=== PATIENT | female | born 2000 | race Caucasian/White ===

== ENCOUNTER 2024-01-13 10:04 | Outpatient (CLI) | payer OTHER, SELFPAY | END 2024-01-13 10:05 | disposition home or self-care (01) | LOC: NFLDREF 01-28 07:03 | PROVIDERS: Visit Provider Nurse Practitioner Family | DX: R35.89 Other polyuria (principal); B37.9 Candidiasis, unspecified; B37.31 Acute candidiasis of vulva and vagina | CPT/HCPCS: 87086 ==

== ENCOUNTER 2024-07-07 12:45 | Outpatient (CLI) | payer OTHER, SELFPAY ==
--- OUTSIDE RECORDS SUMMARY | 2024-07-08 08:09 | XMS_ITS ---
Author Organization [facility] Address [address] [place] [address] Care Team Providers Care Clerk Funeral Detail Name Role Phone None, No PCP Primary Care Provider Scarlett Xavier Unavailable [phone] Allergies No Known Allergies REASON FOR VISIT Follow up to IC. Would like to discuss trying a different OCP due to getting more migraines with current rX. LMP: 05/19/24, DD, MAIL INSERTER Medications Medication SIG (Take, Route, Frequency, Duration) Notes Start Date End Date Status Amitriptyline HCl 25 MG Week 1: take 10m g (your other prescription); Week 2: take 25mg. Week 3: take 50mg. Week 4: take 75mg Orally Once a day for 90 days 02/19/2024 Not-Taking Amitriptyline HCl 75 MG 1 tablet at bedt mariela Orally Once a day for 90 days 02/19/2024 Not-Taking Desogestrel-Ethinyl Estradiol 0.15-30 MG-MCG 1 tablet Orally Once a day for 90 days No placebo pills. Please dispense active pills. Patient is to take medication continuously. 02/19/2024 Active Phenazopyridine HCl 200 MG 1 tablet afte r meals Orally Three times a day for 2 day(s) 02/08/2024 Not-Taking Problems Problem Type SNOMED Code ICD Code Onset Dates Problem Status W/U Status Risk Notes Problem 18006577 Ovulation pain (N94.0) Active confirmed Problem 617565299 Counseling for control, oral contraceptives (Z30.09) Active confirmed Vital Signs Blood pressure systolic 122 mm Hg 06/17/20 24 Blood pressure diastolic 64 mm Hg 024 Height 65 in 06/17/2024 Weight 210.8 lbs 06/17/2024 BMI 35.08 kg/m2 06/17/2024 Encounters Encounter Location Date Provider Diagnosis [facility] [address] [place] [address] 06/17/2024 Scarlett Bates Ovulation pain N94.0 ; Counseling for control, oral contraceptives Z30.09 and Pre-conception counseling Z31.69 Assessments Encounter Date Diagnosis (ICD Code) Assessment Notes Treat ment Notes Treatment Clinical Notes 06/17/2024 Ovulation pain (ICD-10 - N94.0) Patient reports relief of pelvic pain and urinary symptoms. She self-discontinued amitriptyline. We discussed it unlikely she has interstitial cystitis since combined oral contraceptives do not treat interstitial cystitis. We discussed her pain is ovulation based on the timing of her symptoms. It is possible she has endometriosis (now suppressed by COCs which was exacerbating her ovulation pain). Plan is to continue Desogestrel-Ethinyl Estradiol. Recommend patient transition to continuous NAPOLEON use to decrease migraines associated with withdrawal week (sugar pill week). She expressed concern for ovulation pain when she decides to become . She did not previously use therapeutic dosing of ibuprofen to manage her pain. We discussed ibuprofen would be first line recommendation to help reduce ovulation pain. We also discussed that once she becomes , she can no longer take ibuprofen. Patient will call to schedule pelvic ultrasound if she has an acute flare in symptoms. Recommend she follow-up in 6 weeks. If no improvement will transition patient to NAPOLEON with lower estradiol dosage. She verbalized understanding and is in agreement with this plan. , Learning About Chandan (Pain During Ovulation) material was published 06/17/2024 Counseling for control, oral contraceptives (ICD-10 - Z30.09) See plan under Ovulation pain 06/17/2024 Pre-conception counseling (ICD-10 - Z31.69) Patient expressed she would like to achieve next year. She requested preconception education today. We discussed the information below. Preconception Education -Diet: We discussed importance of a balanced diet, to avoid alcohol, drugs & smoking. To minimize caffeine intake. Avoid undercooked or raw meats especially once . -Medications: vitamin with folic acid and iron recommended daily. Recommended to reduce or discontinue use of NSAID's with tylenol being the preferred analgesic prior to conception and during -Activity: We discussed the importance of regular exercise and weight control prior to . -Ovulation: We discussed her menses and likely timing of ovulation and when to time intercourse to improve her chances of conceiving. We also discussed use of ovulation kits as needed to help distinguish the ideal times for intercourse. , Learning About Future When You Are Overweight material was published, Learning About Planning for Future material was published 06/17/2024 Other Time spent on patient care including - review of previous records - preparation for visit - ordering medications, labs or imaging - documenting visit - discussion of care with another health client care manager if indicated - direct face to face time with patient including obtaining relevant history, physical exam and discussion of plan of care Total time was 45 minutes spent including some or all of above listed required for care of patient talking about diagnosis, treatment and plan of care with the patient as listed in the treatment portion of the note Plan Of Treatment Medication Medication Name Sig Start Date Stop Date Notes Desogestrel-Ethinyl Estradio l 0.15-30 MG-MCG 1 tablet Orally Once a day for 90 days 02/19/2024 Treatment Notes Assessment Notes Ovulation pain Patient reports relief of pelvic pain and urinary symptoms. She self-discontinued amitriptyline. We discussed it unlikely she has interstitial cystitis since combined oral contraceptives do not treat interstitial cystitis. We discussed her pain is ovulation based on the timing of her symptoms. It is possible she has endometriosis (now suppressed by COCs which was exacerbating her ovulation pain). Plan is to continue Desogestrel-Ethinyl Estradiol. Recommend patient transition to continuous NAPOLEON use to decrease migraines associated with withdrawal week (sugar pill week). She expressed concern for ovulation pain when she decides to become . She did not previously use therapeutic dosing of ibuprofen to manage her pain. We discussed ibuprofen would be first line recommendation to help reduce ovulation pain. We also discussed that once she becomes , she can no longer take ibuprofen. Patient will call to schedule pelvic ultrasound if she has an acute flare in symptoms. Recommend she follow-up in 6 weeks. If no improvement will transition patient to NAPOLEON with lower estradiol dosage. She verbalized understanding and is in agreement with this plan. , Learning About [place] (Pain During Ovulation) material was published Counseling for control , oral contraceptives See plan under Ovulation pain Pre-conception counseling Patient expressed she would like to achieve next year. She requested preconception education today. We discussed the information below. Preconception Education -Diet: We discussed importance of a balanced diet, to avoid alcohol, drugs & smoking. To minimize caffeine intake. Avoid undercooked or raw meats especially once . -Medications: vitamin with folic acid and iron recommended daily. Recommended to reduce or discontinue use of NSAID's with tylenol being the preferred analgesic prior to conception and during -Activity: We discussed the importance of regular exercise and weight control prior to . -Ovulation: We discussed her menses and likely timing of ovulation and when to time intercourse to improve her chances of conceiving. We also discussed use of ovulation kits as needed to help distinguish the ideal times for intercourse. , Learning About Future When You Are Overweight material was published, Learning About Planning for Future material was published Other Time spent on patient care including - review of previous records - preparation for visit - ordering medications, labs or imaging - documenting visit - discussion of care with another health client care manager if indicated - direct face to face time with patient including obtaining relevant history, physical exam and discussion of plan of care Total time was 45 minutes spent including some or all of above listed required for care of patient talking about diagnosis, treatment and plan of care with the patient as listed in the treatment portion of the note Next Appt Details Follow Up: 6 Weeks, Reason: NAPOLEON F/U Provider Name:Scarlett Bates, Heavenly 09/28/2023 03:00:00 PM, [address] [place], [address], Progress Notes * Rand DAVALOSDOB: [birth year] (23 yo F)Acc No.[id number]:06/17/2024 Patient:?Rand DAVALOS Provider:?Scarlett Bates DNP :2000???Age:23 Y???Sex:Female D ate:06/17/2024 Address:[address] [place], [place] [id number] Pcp:No PCP None Subjective: * Chief Complaints: * ???1. Follow up to IC. Would like to discuss trying a different OCP due to getting more migraines with current rX. LMP: 05/19/24. 2. RICK HONG. * HPI: ???*General:? Rand is a 23 year old female who presents today for follow up on interstitial cystitis.? Initial consult was on 02/19/2024. See note from initial consult for detailed HPI. Most recent follow-up was on 03/19/2024. At that appointment pelvic pain and urinary symptoms had resolved after starting?amitryptyline and?Desogestrel-Ethinyl Estradiol. Purpose of today's visit is to follow-up on pelvic pain and urinary symptoms. Also to discuss if it is necessary for patient to continue both?Amitryptyline, and Combine Oral Contraceptive.? Today: Patient reports she is no longer having any pelvic pain or urinary symptoms. She is very happy with the improvement in her symptoms. She self-discontinued amitryptiline. Reports no change in pelvic pain or urinary symptoms with discontinuation of amitriptyline. Patient reports she is now having migraine headaches. She attribute this to the sugar pills week on her control pills. She denies other side effects from?Desogestrel-Ethinyl Estradiol. * ROS:?All Other Systems:?Review of Systems (ROS)?All others negative except those mentioned in HPI.? * Medical History:?Depression/ anxiety. * Termite Treater History:?Date of Last Period:?05/19/24 OCP,03/17/2405.? Control: ?None.?Sexual Activity?male partner, Not currently sexually active.?Sexually Tranmitted Disease (STD)?None.?Denies H/O Abnormal Pap Smear.? * OB History:?GPAL:?G0.? * Surgical History:?hernia rep air , wisdom teeth extraction . * Hospitalization/Major Diagno stic Procedure:?Hernia Surgery . * Family History:?Mother: diag nosed with Breast Cancer.?Maternal Grand Mother: diagnosed with Breast Cancer.? * Social History:?Drugs/Alcohol:?Drugs?Have you used drugs other than those for medical reasons in the past 12 months??No ?Delta 8?No ?Caffeine?Intake:?none ?Do you smoke marijuana?: Denies. ?Do you drink alcohol?: Yes, Rarely. ???Miscellaneous:?Exercise: no. * Medications:?Taking Desogest rel-Ethinyl Estradiol 0.15-30 MG-MCG Tablet 1 tablet Orally Once a day , Not-Taking Phenazopyridine HCl 200 MG Tablet 1 tablet after meals Orally Three times a day , Not-Taking Amitriptyline HCl 25 MG Tablet Week 1: take 10mg (your other prescription); Week 2: take 25mg. Week 3: take 50mg. Week 4: take 75mg Orally Once a day , Not-Taking Amitriptyline HCl 75 MG Tablet 1 tablet at bedtime Orally Once a day , Medication List reviewed and reconciled with the patient * Allergies:?N.K.D.A. Objective: * Vitals:?Ht: 65 in, Wt:210.8l bs, BP:122/64mm Hg, BMI:35.08Index. * Examination: ???*General Examination: ?GENERAL APPEARANCE:?in no acute distress, alert, well hydrated, in no distress.?PSYCH:?alert, oriented, judgement and insight good, mood/affect full range, speech clear.? Assessment: * Assessment: 1.?Ovulation pain - N94.0 (P rimary)???2.?Counseling for control, oral contraceptives - Z30.09???3.?Pre-conception counseling - Z31.69??? Plan: * Treatment: 2.?Counseling for cont rol, oral contraceptives? Start Desogestrel-Ethinyl Estradiol Tablet, 0.15-30 MG-MCG, 1 tablet, Orally, Once a day No placebo pills. Please dispense active pills. Patient is to take medication continuously., 90 days, 90 Tablet, Refills 3.?? Notes: See plan underOvulation pain?? 3.?Pre-conception counseling ? Notes: Patient expressed she would like to achieve next year. She requested preconception education today. We discussed the information below. Preconception Education -Diet: We discussed importance of a balanced diet, to avoid alcohol, drugs & smoking. To minimize caffeine intake. Avoid undercooked or raw meats especially once . -Medications: vitamin with folic acid and iron recommended daily. Recommended to reduce or discontinue use of NSAID's with tylenol being the preferred analgesic prior to conception and during -Activity: We discussed the importance of regular exercise and weight control prior to . -Ovulation: We discussed her menses and likely timing of ovulation and when to time intercourse to improve her chances of conceiving. We also discussed use of ovulation kits as needed to help distinguish the ideal times for intercourse. , Learning About Future When You Are Overweight material was published, Learning About Planning for Future material was published?? 4.?Others? Notes: Time spent on patient care including - review of previous records - preparation for visit - ordering medications, labs or imaging - documenting visit - discussion of care with another health client care manager if indicated - direct face to face time with patient including obtaining relevant history, physical exam and discussion of plan of care Total time was 45 minutes spent including some or all of above listed required for care of patient talking about diagnosis, treatment and plan of care with the patient as listed in the treatment portion of the note ?? * Follow Up:?6 Weeks (Reason: NAPOLEON F/U) * Billing Information: * Visit Code:? 63775 Office Visit, Est Pt., Level 5. * Procedure Codes:? * Sign off status: Completed true * Provider:?Scarlett Bates DNP Date:? 024 Generated for Georges salamanca/Fátima/Arnel on:?07/08/2024 12:56 AM CDT History and Physical Notes * Examination Category Sub-Category Detail Notes *General Examination GENERAL APPEARANCE: in no a cute distress, alert, well hydrated, in no distress PSYCH: alert, oriented, suzanna gement and insight good, mood/affect full range, speech clear
--- OUTSIDE RECORDS SUMMARY | 2024-07-08 08:09 | XMS_ITS | Patient Health Record ---
Author Organization [facility] Address [address] [place] [address] Care Team Providers Care School Traffic Supervisor Name Role Phone None, No PCP Primary Care Provider Joe Bates Scarlett Unavailable [phone] Nathalie Zhao Unavailable [phone] Allergies No Known Allergies Results Component Value Reference Range Notes THINPREP TIS AND HPV mRNA E6 /E7 (30 yrs and over) Reviewed date:02/14/2024 08:30:21 AM Interpretation:Normal Performing Lab:[place], [facility] Gibson Neumann Notes/Report: SPLIT 02/08/2024 FROM [id number] CLINICAL INFORMATION: None g iven LMP: [id number] PREV. PAP: 2021 PREV. BX: NONE GIVEN SOURCE: [employer] STATEMENT OF ADEQUACY: Satisfactory for evaluation. Endocervical/transformatio n zone component present. INTERPRETATION/RESULT: Cytology Results: Negative for intraepithelial lesion or malignancy. COMMENT: This Pap test has been evaluated with computer assisted technology. DYE HOUSE HAND: COLIN RYAN(ASCP) CT Screening location: [place] [address] COMMENT EXPLANATORY NOTE: The Pap is a screening test for cervical cancer. It is not a diagnostic test and is subject to false negative and false positive results. It is most reliable when a satisfactory sample, regularly obtained, is submitted with relevant clinical findings and history, and when the Pap result is evaluated along with historic and current clinical information. HPV mRNA E6/E7 Not Detected Not Detected Methodology: Philosophy And Religion Instructor-Mediated Amplification This assay detects E6/E7 viral messenger RNA (mRNA) from 14 high-risk HPV types (16,18,31,33,35,39,45,51,5 2,56,58,59,66,68). Cervical sources are required for HPV testing. If a vaginal source from a patient who has had a total hysterectomy with removal of cervix was submitted, please contact the testing laboratory for alternative testing options. For additional information, please refer to http://education.Updox/faq/YUT875x6 (This link if provided for information/ educational purposes only.) CULTURE, URINE, ROUTINE Reviewed date:02/11/2024 10:19:14 AM Interpretation:Negative Performing Lab:[facility] [address] [facility], [facility] HospitalJluxBB[address] Gibson Neumann Notes/Report: MULTIPLE TESTING PRIORITIES; ROUTINE TESTING TO FOLLOW. CULTURE, URINE, ROUTINE SEE NOTE Micro Number: [id number] Test Status: Final Specimen Source: Urine, clean catch Specimen Quality: Adequate Result: Mixed genital graciela isolated. These superficial bacteria are not indicative of a urinary tract CULTURE, URINE, ROUTINE infection. No further organism identification is warranted on this specimen. If clinically indicated, recollect clean-catch, mid-stream urine and transfer immediately to Urine Culture Transport Tube. TSH (IH) Reviewed date:02/11/2024 11:10:50 AM Interpretation:Normal Performing Lab: Notes/Report: [place] [id number] ([id number])[facility] HEMOGLOBIN A1c Reviewed date:02/11/2024 10:19:14 AM Interpretation:Normal Performing Lab:[facility] [employer]New[facility], [facility] HospitalDqmuCH[address] Gibson Neumann Notes/Report: HEMOGLOBIN A1c 5.1 <5.7 % of total Hgb For the purpose of screening for the presence of diabetes: <5.7% Consistent with the absence of diabetes 5.7-6.4% Consistent with increased risk for diabetes (prediabetes) > or =6.5% Consistent with diabetes This assay result is consistent with a decreased risk of diabetes. Currently, no consensus exists regarding use of hemoglobin A1c for diagnosis of diabetes in children. According to [place] Diabetes Association (ADA) guidelines, hemoglobin A1c <7.0% represents optimal control in non- diabetic patients. Different metrics may apply to specific patient populations. Standards of Medical Care in Diabetes(ADA). This test was performed on the Summer karla c503 platform. Effective 11/28/23, a change in test platforms from the [employer] Manager [employer] to the Summer karla c503 may have shifted HbA1c results compared to historical results. Based on laboratory validation testing conducted at [employer], the Summer platform relative to the [place] platform had an average increase in HbA1c value of < or = 0.3%. This difference is within accepted variability established by the National Glycohemoglobin Standardization Program. Note that not all individuals will have had a shift in their results and direct comparisons between historical and current results for testing conducted on different platforms is not recommended. CBC (INCLUDES DIFF/PLT) Reviewed date:02/11/2024 10:19:14 AM Interpretation: Performing Lab:[facility] [employer], YuMingleMssnEE[address] Gibson Neumann Notes/Report: WHITE BLOOD CELL COUNT 7.9 3.8-10.8 Thousand/ uL RED BLOOD CELL COUNT 5.27 3.80-5.10 Million/uL HEMOGLOBIN 13.5 11.7-15.5 g/dL HEMATOCRIT 43.4 35.0-45.0 % MCV 82.4 80.0-100.0 fL MCH 25.6 27.0-33.0 pg MCHC 31.1 32.0-36.0 g/dL RDW 12.6 11.0-15.0 % PLATELET COUNT 264 140-400 Thousand/uL MPV 9.6 7.5-12.5 fL ABSOLUTE NEUTROPHILS 5167 9238-2552 cells/uL ABSOLUTE LYMPHOCYTES 2038 850-3900 cells/uL ABSOLUTE MONOCYTES 600 200-950 cells/uL ABSOLUTE EOSINOPHILS 63 15-500 cells/uL ABSOLUTE BASOPHILS 32 0-200 cells/uL NEUTROPHILS 65.4 LYMPHOCYTES 25.8 MONOCYTES 7.6 EOSINOPHILS 0.8 BASOPHILS 0.4 COMPREHENSIVE METABOLIC PANE L (CMP) Reviewed date:02/11/2024 10:19:14 AM Interpretation:Normal Performing Lab:[facility] Jgzt4845 [employer] [place] [facility], [facility] HospitalKrffKL[address] Gibson Neumann Notes/Report: GLUCOSE 87 65-99 mg/dL Fasting reference interval UREA NITROGEN (BUN) 9 7-25 mg/dL CREATININE 0.78 0.50-0.96 mg/dL EGFR 108 > OR = 60 mL/min/1.73m2 BUN/CREATININE RATIO SEE NOTE: 6-22 (calc) Not Reported: BUN and Creatinine are within reference range. SODIUM 138 135-146 mmol/L POTASSIUM 4.1 3.5-5.3 mmol/L CHLORIDE 104 98-110 mmol/L CARBON DIOXIDE 27 20-32 mmol/L CALCIUM 9.2 8.6-10.2 mg/dL PROTEIN, TOTAL 7.1 6.1-8.1 g/dL ALBUMIN 4.5 3.6-5.1 g/dL GLOBULIN 2.6 1.9-3.7 g/dL (calc) ALBUMIN/GLOBULIN RATIO 1.7 1.0-2.5 (calc) BILIRUBIN, TOTAL 0.5 0.2-1.2 mg/dL ALKALINE PHOSPHATASE 55 31-125 U/L AST 20 10-30 U/L ALT 21 6-29 U/L Urinalysis, Routine () Reviewed date:02/08/2024 11:26:21 AM Interpretation: Performing Lab: Notes/Report: Urine Color yellow Yellow - Gabi Appearance clear Clear - Glucose neg Bilirubin neg Ketone neg Specific Shevlin 1.020 Blood 80 pH 6.0 Protein neg Urobilinogen 1 Nitrite neg Leukocytes neg Reason For Referral No Information Medications Medication SIG (Take, Route, Frequency, Duration) [...] a day for 2 day(s) 02/08/2024 Not-Taking Social History AUDIT-C (Standard) Question Answer Notes Did you have a drink contain ing alcohol in the past year? Yes How often did you have six o r more drinks on one occasion in the past year? Less than monthly (1 point) How many drinks did you have on a typical day when you were drinking in the past year? 1 or 2 drinks (0 point) How often did you have a dri nk containing alcohol in the past year? Monthly or less (1 point) Points 2 Interpretation Negative Problems Problem Type SNOMED Code ICD Code Onset Dates Problem Status W/U Status Risk Notes Problem 998790185 Encounter for initial prescription of contraceptive pills (Z30.011) Active confirmed Problem 115719978 Interstitial cystitis (N30.10) Active confirmed Problem 74464565 Ovulation pain (N94.0) Active confirmed Problem 689956569 Counseling for control, oral contraceptives (Z30.09) Active confirmed Vital Signs Blood pressure diastolic 64 mm Hg 06/17/2024 Height 65 in 06/17/2024 Blood pressure systolic 122 mm Hg 06/17/2024 Weight 210.8 lbs 06/17/2024 BMI 35.08 kg/m2 06/17/2024 Encounters Encounter Location Date Provider Diagnosis [address] [address] 02/08/2024 Nathalie Zhao Encounter for screen ing for malignant neoplasm of cervix Z12.4 ; Women's annual routine gynecological examination Z01.419 ; Encounter for screening for diabetes mellitus Z13.1 and Urinary frequency R35.[address] [address] 02/08/2024 Nathalie Zhao Encounter for annual routine gynecological examination Z01.419 ; Screening for metabolic disorder Z13.228 ; Diabetes mellitus screening Z13.1 ; Screening for endocrine disorder Z13.29 and Urinary frequency R35.[address] [address] 02/19/2024 Scarlett Bates Bladder pain syndrom e N30.10 and Encounter for initial prescription of contraceptive pills Z30.[address] [address] 03/19/2024 Scarlett Bates Interstitial cystiti s N30.[address] [address] 06/17/2024 Scarlett Bates Ovulation pain N94.0 ; Counseling for control, oral contraceptives Z30.09 and Pre-conception counseling Z31.69 [facility] [address] [place] [address] [place] [id number] 02/08/2024 Nathalie Zhao [facility] [address] [place] [address] [place] [id number] 02/08/2024 Nathalie Zhao [facility] [address] [place] [address] 02/19/2024 Scarlett [facility] [address] [place] [address] 02/08/2024 Nathalie Zhao [facility] [address] [place] [address] 02/19/2024 Scarlett Bates [facility] [address] [place] [address] 02/19/2024 Scarlett [facility] [address] [place] [address] 04/15/2024 Scarlett [facility] Assessments Encounter Date Diagnosis (ICD Code) Assessment Notes Treatment Notes Treatment Clinical Notes 02/08/2024 Encounter for screening for malignant neoplasm of cervix (ICD-10 - Z12.4) 02/08/2024 Women's annual routine gynecological examination (ICD-10 - Z01.419) 02/08/2024 Encounter for annual routine gynecological examination (ICD-10 - Z01.419) 02/19/2024 Encounter for initial prescription of contraceptive pills (ICD-10 - Z30.011) Patient denies contraindications to estrogen (migraine with aura, breast disease/cancer, liver disease/cancer, history of VTE, AUB, ). Reviewed proper use for oral contraceptives. Purpose of oral contraceptive is to suppress ovulation in hopes to reduce patient's pain. See remainder of plan under Bladder pain syndrome 02/19/2024 Bladder pain syndrome (ICD-10 - N30.10) Discussed her symptoms are consistent with bladder pain syndrome, also known as interstitial cystitis. She recently has had a negative urine culture. Additional work-up recommended today is pelvic ultrasound. Recommend patient call and schedule ultrasound next time she is having a flare. I would like to determine if ovarian cysts are contributing to her pain. Provided patient with handout on AUA algorithm for interstitial cystitis. I do not recommend cystoscopy at this time. Will consider cystoscopy if patient does not improve at next follow-up. Today recommend that patient continue interstitial cystitis diet. Patient has been using the [facility] diet guidebook. Can consider referral to manager corporate in future if needed. Recommend pelvic floor physical therapy. In addition, recommend medication management with oral amitriptyline (see discussion on amitryptiline below) and combined oral contraceptive for suppression of ovulation. Patient recently had pelvic exam at annual exam. No pain or pelvic floor dysfunction noted on exam. Due to time spent in consultation exam not performed. Deferring examination of pelvic floor muscles to pelvic floor physical therapist. Patient is to complete bladder diary, 2 days should be when she is not having a flare, and at least 1 days during a flare if flare occurs before next appointment. Encouraged patient to pay attention to bowel habits and flares. Can consider gastroenterology referral in future. Patient will follow-up in 4 weeks. If flare occurs during that time, refer to IChelp.org for guidance on at home comfort measures AMITRIPTYLINE: Today we discussed that amitriptyline is recommended as a first-line pharmacologic therapy for management of interstitial cystitis/bladder pain syndrome (IC/BPS). This medication works by increasing the synaptic concentration of serotonin and/or norepinephrine in the central nervous system by inhibiting their reuptake by the presynaptic neuronal membrane pump. Onset of action: initial effects may be observed in 1 to 2 weeks with continued improvement through 4 to 6 weeks. Amitriptyline is a tricyclic antidepressant and can have the added benefit of relieve depressive symptoms often associated with chronic pain. Amitriptyline appears to be most effective for IC/BPS at higher doses. In one trial patients on a 50mg daily dose or higher had greater than 30 percent decrease in symptoms (when compared to placebo). Another randomized controlled trial reported efficacy of oral amitriptyline (25 mg daily titrated over several weeks to 100 mg daily if tolerated) to be superior to placebo (63% of treatment group clinically significantly improved compared to 4% of placebo group) at four months. Two observational studies reported similar findings of 50% to 64% of patients experiencing clinically significant improvement using a similar dosing regimen at up to 19 months of follow-up. AEs were extremely common (up to 79% of patients) and, although not life-threatening, had substantial potential to compromise quality of life (e.g., sedation, drowsiness, nausea). We reviewed common side effects and adverse reactions: Side effects: drowsiness, dry mouth, dizziness, constipation, blurred vision, palpitations, tachycardia, impaired coordination, appetite increase, nausea, vomiting, diaphoresis, weakness, disorientation, confusion, restlessness, insomnia, anxiety, agitation, urinary retention, urinary frequency, rash, urticaria, pruritus, weight gain, libido changes, impotence, gynecomastia, galactorrhea, tremor, hypoglycemia, hyperglycemia, paresthesia, and photosensitivity. Adverse reactions: hypotension, orthostatic, hypertension, syncope, ventricular arrhythmia, QT prolongation, torsade de pointes, AV block, AR, stroke, seizures, extrapyramidal symptoms, ataxia, tardive dyskinesia, paralytic ileus, glaucoma, increase in intraocular pressure, agranulocytosis, leukopenia, thrombocytopenia, hallucinations, psychosis exacerbation, hypomania, mario, depression exacerbation, suicidality, SIADH, hepatitis, angioedema, psychosis, anticholinergic, hyperthermia, heat stroke, and withdrawal symptoms if abruptly discontinued. This medication should not be taken concomitantly with monoamine oxidase inhibitors. It should not be taken with cisapride. Nor should it be used immediately after a myocardial infarction. Other medications that can interact with amitriptyline include selective serotonin inhibitors, cimetidine, and anticonvulsants. She denies use of MAOI (within past 14 days), use of cisapride, or history of myocardial infarction. Monitoring parameters: Has completed PHQ-9 within the past year. No cardiac history. ECG is not indicated. If patient becomes recommend discontinuation of medication. May use while . Plan to start at initial dose of 10mg daily at bedtime and then increase based on tolerance. After 1 week will increase dose to 25 mg. Then increase weekly at 25mg intervals until patient hits target dose of 75 to 100 mg/day. Follow-up in 4 weeks to review effectiveness and tolerance. 03/19/2024 Interstitial cystitis (ICD-10 - N30.10) Patient reports relief of pelvic pain and urinary symptoms. Plan is to continue amitryptiline and Desogestrel-Ethinyl Estradiol. Patient will call to schedule pelvic ultrasound if she has an acute flare in symptoms. Recommend she follow-up in 3 months 06/17/2024 Ovulation pain (ICD-10 - N94.0) Patient [...] About Planning for Future material was published 02/08/2024 Screening for metabolic disorder (ICD-10 - Z13.228) 02/08/2024 Encounter for screening for diabetes mellitus (ICD-10 - Z13.1) 02/08/2024 Urinary frequency (ICD-10 - R35.0) 1. UA/UC today 2. WIll have her come back to have a bladder consult with Scarlett Bates DNP. Symptoms seem consistent with IC. IC diet book provided. Recommended she do a bladder/food diary prior to her visit with Paulo. 3. Blood noted in her UA today so will treat with macrobid 02/08/2024 Diabetes mellitus screening (ICD-10 - Z13.1) 02/08/2024 Screening for endocrine disorder (ICD-10 - Z13.29) 02/08/2024 Urinary frequency (ICD-10 - R35.0) 02/08/2024 Other Reviewed recommendations for Vit D 5000IU, Ca+ and daily multi vitamin. Preventative lab panel collected Pap collected Encouraged to call with any issues or concerns as they come up. All questions answered. RTC in 1 year 02/19/2024 Other Time spent on patient care including - review of previous records - preparation for visit - ordering medications, labs or imaging - documenting visit - discussion of care with another health career discovery teacher if indicated - direct face to face time with patient including obtaining relevant history, physical exam and discussion of plan of care Total time was 45 minutes spent including some or all of above listed required for care of patient talking about diagnosis, treatment and plan of care with the patient as listed in the treatment portion of the note 03/19/2024 Other Time spent on patient care including - review of previous records - preparation for visit - ordering medications, labs or imaging - documenting visit - discussion of care with another health career discovery teacher if indicated - direct face to face time with patient including obtaining relevant history, physical exam and discussion of plan of care Total time was 32 minutes spent including some or all of above listed required for care of patient talking about diagnosis, treatment and plan of care with the patient as listed in the treatment portion of the note 06/17/2024 Other Time spent on patient care including - review of previous records - preparation for visit - ordering medications, labs or imaging - documenting visit - discussion of care with another health career discovery teacher if indicated - direct face to face time with patient including obtaining relevant history, physical exam and discussion of plan of care Total time was 45 minutes spent including some or all of above listed required for care of patient talking about diagnosis, treatment and plan of care with the patient as listed in the treatment portion of the note Plan Of Treatment Pending Test Test Name Order Date Pap with reflex HPV if ASCUS (under 30 y rs) 02/08/2024 Next Appt Details Provider Name:Scarlett Bates, 1 09/28/2023 03:00:00 PM, [address] [place], [address], Insurance Providers Payer Name Payer Address Payer Phone Subscriber Number Group Number Insured Name Patient Relationship to Insured Coverage Start Date Coverage End Date [facility] Commercial (Ins. Bill) [address] [address] [place], [place] [id number] [phone] Rand Joy Self - patient is the insured Medical (General) History Medical History History ICD Code depression/ anxiety Surgical History Surgery Date(Month/Year) hernia repair wisdom teeth extraction Hospitalization History Reason Date(Month/Year) Hernia Surgery
--- OUTSIDE RECORDS SUMMARY | 2024-07-08 08:09 | XMS_ITS ---
Author Organization [facility] Address [address] [place] [address] Care Team Providers Care Journeyman Lineman Name Role Phone None, No PCP Primary Care Provider Scarlett Xavier [phone] REASON FOR VISIT New Refill Request Encounters Encounter Location Date Provider Diagnosis [facility] [address] [place] [address] 04/15/2024 Scarlett Bates Plan Of Treatment Next Appt Details Provider Name:Scarlett Bates, 1 09/28/2023 03:00:00 PM, [address] [place], [address], Progress Notes * Rand DAVALOSDOB: [birth year] (23 yo F)Acc No.[id number]:04/15/2024 Patient:?Rand DAVALOS :2000???Age:23 Y???Sex:Female Address:[address] [place], [address] * true * Date:? Generated for Printi ng/Faxing/eTransmitting on:?07/08/2024 08:09 AM CDT
--- OUTSIDE RECORDS SUMMARY | 2024-07-08 08:10 | XMS_ITS | Encounter Summary ---
Author Organization [facility] Address [address] [place] [id number] Care Team Providers Care Development Analyst Name Role Phone Sindhu Granda NP Primary Care Provider Sindhu Mason NP Unavailable Unavailable Juana Jimenes PA-C Unavailable No Ref-Primary, Physician Primary Care Provider Reason for Visit * Reason Onset Date Comments MyChart Communication 06/07/2023 Encounter Details Date Type Department Care Team (Latest Contact Info) Description 06/07/2023 MyC Medical Advice [address] [address] Sindhu Granda NP MyChart Communication Social History Tobacco Use Types Packs/Day Years Used Date Smoking Tobacco: Never Smokeless Tobacco: Never Alcohol Use Standard Drinks/Week Comments Yes 0 (1 standard drink = 0.6 oz pur e alcohol) Social Connection and Isolation Panel [NHANES] A nswer Date Recorded In a typical week, how many times do you talk on the phone with family, friends, or neighbors? Twice a week 06/06/2023 How often do you get together with friends or re latives? Once a week 06/06/2023 How often do you attend anabaptist or scientologist serv ices? Never 06/06/2023 Do you belong to any clubs o r organizations such as anabaptist groups, unions, fraternal or athletic groups, or school groups? No 06/06/2023 Attends Club or Organization Meetings Not on vin e 06/06/2023 Are you , , di vorced, , never , or living with a partner? 06/06/2023 AUDIT-C Answer Date Recorded Q1: How often do you have a drink containing alc ohol? 2-4 times a month 06/06/2023 Q2: How many drinks containi ng alcohol do you have on a typical day when you are drinking? 1 or 2 06/06/2023 Q3: How often do you have si x or more drinks on one occasion? Never 06/06/2023 Overall Financial Resource Strain (CARDIA) Answe r Date Recorded How hard is it for you to pa y for the very basics like food, housing, medical care, and heating? Not hard at all 06/06/2023 PHQ-2 Answer Date Recorded PHQ-2 Score 1 06/06/2023 [facility] - Occupational Stress Questionnaire Answer Date Recorded Do you feel stress - tense, restless, nervous, or anxious, or unable to sleep at night because your mind is troubled all the time - these days? Only a little 06/06/2023 Exercise Vital Sign Answer Date Recorde d On average, how many days pe r week do you engage in moderate to strenuous exercise (like a brisk walk)? 1 day 06/06/2023 On average, how many minutes do you engage in exercise at this level? 30 min 06/06/2023 Hunger Vital Sign Answer Date Recorded Within the past 12 months, y ou worried that your food would run out before you got the money to buy more. Never true 06/06/20 23 Within the past 12 months, t he food you bought just didn't last and you didn't have money to get more. Never true 06/06/2023 PRAPARE - Transportation Answer Date Re corded In the past 12 months, has l ack of transportation kept you from medical appointments or from getting medications? No 05/25 In the past 12 months, has l ack of transportation kept you from meetings, work, or from getting things needed for daily living? No 06/06/2023 Housing Stability Vital Sign Answer Alexsander e Recorded In the last 12 months, was t here a time when you were not able to pay the mortgage or rent on time? No 06/06/2023 In the last 12 months, how many places have you lived? 1 06/06/2023 In the last 12 months, was t here a time when you did not have a steady place to sleep or slept in a detention (including now)? No 06/06/2023 Sex and Gender Information Value Date Recorded Sex Assigned at Not on file Gender Identity Not on file Sexual Orientation Not on file COVID-19 Exposure Response Date Recorded In the last 10 days, have yo u been in contact with someone who was confirmed or suspected to have Coronavirus/COVID-19? No / Unsure 06/06/2023 3:30 PM CDT documented as of this encounter Plan of Treatment Not on file documented as of this encounter Visit Diagnoses Not on filedocumented in this encounter Care Teams Development Analyst Relationship Specialty Start Date End Date Sindhu Granda NP PCP - General Family Medicine 06/06/23 01/10/24 No Ref-Primary, Physician PCP - General 07/08/24 Sindhu Granda NP Assigned PCP 05/16/23 01/14/24 Juana Jimenes PA-C [id number] [place] [address] Assigned PCP 01/15/24 documented as of this encounter
--- OUTSIDE RECORDS SUMMARY | 2024-07-08 08:10 | XMS_ITS | Referral Summary ---
Author Organization [facility] Address [address] [place] [address] Care Team Providers Care Front End Web Designer Name Role Phone Juana Jimenes PA-C Unavailable No Ref-Primary, Physician Primary Care Provider Encounters Date Type Department Care Team Description 07/08/2024 Travel 07/08/2024 2:31 AM CDT - 07/08/2024 5:45 AM CDT [facility] Emergency Dept [address] [place] [address] Brian Perry MD Acute pyelonephritis Discharge Disposition: Home or Self Care from Last 3 Months Allergies No known active allergies Medications Medication Sig Dispensed Refills Start Date End Date Status sertraline (ZOLOFT) 25 MG tabletIndications: Anxiety Take 1 tablet (25 mg) by mouth daily 90 tablet 3 07/11/2023 Active Additional Information Patient not taking.Reported on 11/25/2023 tirzepatide (MOUNJARO) 2.5 MG/0.5ML penIndications:Cla ss 2 severe obesity due to excess calories with serious comorbidity and body mass index (BMI) of 36.0 to 36.9 in adult (H) Inject 2.5 mg Subcutaneous every 7 days 2 mL 07/11/2023 Active Additional Information Patient not taking.Reported on 11/25/2023 dicyclomine (BENTYL) 20 MG tabletIndications: Abdominal pain, generalized Take 1 tablet (20 mg) by mouth 4 times daily as needed (abdominal pain) 40 tablet 08/28/2023 Active Additional Information Patient not taking.Reported on 12/21/2023 sulfamethoxazole-t rimethoprim (BACTRIM DS) 800-160 MG tablet Take 1 tablet by mouth 2 times daily for 10 days. 20 tablet 07/08/2024 07/18/2024 Active Active Problems No known active problems Social History Tobacco Use Types Packs/Day Years Used Date Smoking Tobacco: Never Smokeless Tobacco: Never Tobacco Cessation:Counseling Given: Not Answered Alcohol Use Standard Drinks/Week Comments Yes 0 [...] week 06/06/2023 How often do you attend yazidi or anabaptist serv ices? Never 06/06/2023 Do you belong to any clubs o r organizations such as yazidi groups, unions, fraternal or athletic groups, or [...] more drinks on one occasion? Never 06/06/2023 PHQ-2 Answer Date Recorded PHQ-2 Score 0 12/21/2023 [facility] of Occupat ional Health - [...] exercise at this level? 30 min 06/06/2023 Adolescent Education Answer Date Record ed Getting School Help Needed Not on file 06/16 Food Insecurity Answer Date Recorded Within the past 12 months, d id you worry that your food would run out before you got money to buy more? No 07/11/2023 Within the past 12 months, d id the food you bought just not last and you didn? t have money to get more? No 07/11/2023 Housing Stability Answer Date Recorded Do you have housing? (Christian cardoso is defined as stable permanent housing and does not include staying ouside in a car, in a tent, in an abandoned building, in an overnight skilled nursing, or couch-surfing.) Yes 07/11/2023 Are you worried about losing your housing? No 07/11/2023 Financial Resource Strain Answer Date R ecorded Within the past 12 months, h ave you or your family members you live with been unable to get utilities (heat, electricity) when it was really needed? No 07/11/2023 Transportation Needs Answer Date Record ed Within the past 12 months, h as lack of transportation kept you from medical appointments, getting your medicines, non-medical meetings or appointments, work, or from getting things that you need? No 07/11/2023 Interpersonal Safety Answer Date Record ed Do you feel physically and e motionally safe where you currently live? Yes 07/11/2023 Within the past 12 months, h ave you been hit, slapped, kicked or otherwise physically hurt by someone? No 07/11/2023 Within the past 12 months, h ave you been humiliated or emotionally abused in other ways by your partner or ex-partner? No 07/11/2023 Sex and Gender Information Value Date Recorded Sex Assigned at Not on file Gender Identity Not on file Sexual Orientation Not on file Last Filed Vital Signs Vital Sign Reading Time Taken Comments Blood Pressure 137/84 07/08/2024 12:59 AM CDT Pulse 114 07/08/2024 12:59 AM CDT Temperature 36.8 ??C (98.3 ??F) 07/08/2024 12:59 AM C DT Respiratory Rate 20 07/08/2024 12:59 AM CDT Oxygen Saturation 100% 07/08/2024 12:59 AM CDT Inhaled Oxygen Concentration - - Weight 96.9 kg (213 lb 10 oz) 07/08/2024 12:59 A M CDT Height 165.1 cm (5' 5) 07/08/2024 12:59 AM CDT Body Mass Index 35.55 07/08/2024 12:59 AM CDT Plan of Treatment Not on file Procedures Procedure Name Priority Date/Time Associated Diagnosis Comments CT ABDOMEN PELVIS W/O CONTRAST STAT 07/08/2024 4:44 AM CDT CBC WITH PLATELETS & DIFFERENTIAL STAT 07/08/2024 2:53 AM CDT CBC WITH PLATELETS AND DIFFERENTIAL STAT 07/08/2024 2:53 AM CDT HCG QUALITATIVE STAT 07/08/2024 2:53 AM CDT COMPREHENSIVE METABOLIC PANEL STAT 07/08/2024 2:53 AM CDT ROUTINE UA WITH MICROSCOPIC REFLEX TO CULTURE STAT 07/08/2024 1:35 AM CDT ABSTRACT HIV Routine 02/16/2022 4:05 PM CDT PAP SMEAR - HIM PATIENT REPORTED Routine 08/02/2021 from Last 3 Months or Most Recently Relevant to Health Maintenance Results * CT Abdomen Pelvis w/o Contrast (07/08/2024 4:44 AM CDT) Anatomical Region Laterality Modality Abdomen/Pelvis, SUBRAD CT REINA DY, UMP CT ABDOMEN PELVIS, RAD CT Computed Tomography 07/08/2024 4:44 AM CDT Impressions 07/08/2024 5:02 AM CDT IMPRESSION: 1. ??No acute findings in the abdomen or pelvis. Narrative 07/08/2024 5:02 AM CDT EXAM: CT ABDOMEN PELVIS W/O CONTRAST LOCATION: [facility] DATE: 07/08/2024 INDICATION: hematuria, flank pain COMPARISON: None. TECHNIQUE: CT scan of the abdomen and pelvis was performed without IV contrast. Multiplanar reformats were obtained. Dose reduction techniques were used. CONTRAST: None. FINDINGS: LOWER CHEST: Normal. HEPATOBILIARY: Normal. PANCREAS: Normal. SPLEEN: Normal. ADRENAL GLANDS: Normal. KIDNEYS/BLADDER: No significant mass, stone, or hydronephrosis. BOWEL: No bowel obstruction or inflammatory change. Normal appendix. LYMPH NODES: Normal. VASCULATURE: Normal. PELVIC ORGANS: Normal. MUSCULOSKELETAL: Normal. Procedure Note Luis Jeffries MD - 07/08/2024 EXAM: CT ABDOMEN PELVIS W/O CONTRAST LOCATION: [facility] DATE: 07/08/2024 INDICATION: hematuria, flank pain COMPARISON: None. TECHNIQUE: CT scan of the abdomen and pelvis was performed without IVcontrast. Multiplanar reformats were obtained. Dose reduction techniqueswere used. CONTRAST: None. FINDINGS: LOWER CHEST: Normal. HEPATOBILIARY: Normal. PANCREAS: Normal. SPLEEN: Normal. ADRENAL GLANDS: Normal. KIDNEYS/BLADDER: No significant mass, stone, or hydronephrosis. BOWEL: No bowel obstruction or inflammatory change. Normal appendix. LYMPH NODES: Normal. VASCULATURE: Normal. PELVIC ORGANS: Normal. MUSCULOSKELETAL: Normal. IMPRESSION: 1. No acute findings in the abdomen or pelvis. Brian Perry MD IMG CT ORDERABLES * (ABNORMAL) CBC with platelets and differential (07/08/2024 2:53 AM CDT) WBC Count 14.2(H) 4.0 - 11.0 10e3/uL 07/08/2024 3:01 AM CDT [facility] RBC Count 5.77(H) 3.80 - 5.20 10e6/uL 07/08/2024 3:01 AM CDT [facility] Hemoglobin 14.4 11.7 - 15.7 g/dL 07/08/2024 3:01 AM CDT [facility] Hematocrit 45.2 35.0 - 47.0 % 07/08/2024 3:01 AM CDT [facility] MCV 78 78 - 100 fL 07/08/2024 3:01 AM CDT [facility] MCH 25.0(L) 26.5 - 33.0 pg 07/08/2024 3:01 AM CDT [facility] MCHC 31.9 31.5 - 36.5 g/dL 07/08/2024 3:01 AM CDT [facility] RDW 13.4 10.0 - 15.0 % 07/08/2024 3:01 AM CDT [facility] Platelet Count 266 150 - 450 10e3/uL 07/08/2024 3:01 AM CDT [facility] % Neutrophils 76 % 07/08/2024 3:01 AM CDT [facility] % Lymphocytes 15 % 07/08/2024 3:01 AM CDT [facility] % Monocytes 8 % 07/08/2024 3:01 AM CDT [facility] % Eosinophils 0 % 07/08/2024 3:01 AM CDT [facility] % Basophils 0 % 07/08/2024 3:01 AM CDT [facility] % Immature Granulocytes 0 % 07/08/2024 3:01 AM CDT [facility] NRBCs per 100 WBC 0 <1 /100 024 3:01 AM CDT [facility] Absolute Neutrophils 10.8(H) 1.6 - 8.3 10e3/uL 07/08/2024 3:01 AM CDT [facility] Absolute Lymphocytes 2.1 0.8 - 5.3 10e3/uL 07/08/2024 3:01 AM CDT [facility] Absolute Monocytes 1.2 0.0 - 1.3 10e3/uL 07/08/2024 3:01 AM CDT [facility] Absolute Eosinophils 0.1 0.0 - 0.7 10e3/uL 07/08/2024 3:01 AM CDT [facility] Absolute Basophils 0.0 0.0 - 0.2 10e3/uL 07/08/2024 3:01 AM CDT [facility] Absolute Immature Granulocytes 0.1 <=0.4 10e3/uL 07/08/2024 3:01 AM CDT [facility] Absolute NRBCs 0.0 10e3/uL 07/08/2024 3:01 AM CDT [facility] Blood VENOUS LINE / Unknown Venipuncture / Unknown 07/08/2024 2:53 AM CDT 07/08/2024 2:58 AM CDT Brian Perry MD LAB - BLOOD ORDERABL ES [facility] [address] [facility] Lab (1st floor, no room number) [address] [place] [address] * HCG qualitative Blood (07/08/2024 2:53 AM CDT) hCG Serum Qualitative Negative Negative TIARRA 07/08/2024 3:43 AM CDT [facility] Comment:This test is for scr eening purposes. Results should be interpreted along with the clinical picture. Confirmation testing is available if warranted by ordering [id number], HCG Quantitative . Blood VENOUS LINE / Unknown Venipuncture / Unknown 07/08/2024 2:53 AM CDT 07/08/2024 2:58 AM CDT Brian Perry MD LAB - BLOOD ORDERABL ES [facility] [address] [facility], no room number) [address] [place] [address] * (ABNORMAL) Comprehensive metabolic panel (07/08/2024 2:53 AM CDT) Sodium 139 135 - 145 mmol/L 07/08/2024 3:18 AM CDT LABORATORY Potassium 3.7 3.4 - 5.3 mmol/L 07/08/2024 3:18 AM CDT LABORATORY Carbon Dioxide (CO2) 20(L) 22 - 29 mmol/L 07/08/2024 3:18 AM CDT LABORATORY Anion Gap 16(H) 7 - 15 mmol/L 07/08/2024 3:18 AM CDT LABORATORY Urea Nitrogen 11.6 6.0 - 20.0 mg/dL 07/08/2024 3:18 AM CDT LABORATORY Creatinine 0.87 0.51 - 0.95 mg/dL 07/08/2024 3:18 AM CDT LABORATORY GFR Estimate >90 >60 mL/min/1.7 3m2 07/08/2024 3:18 AM CDT [facility]OR[facility]ORY Comment:eGFR calculated usin 2020 CKD-EPI equation. Calcium 8.5(L) 8.8 - 10.4 mg/dL 07/08/2024 3:18 AM CDT LABORATORY Comment:Reference intervals for this test were updated on 04/08/2024 to reflect our healthy population more accurately. There may be differences in the flagging of prior results with similar values performed with this method. Those prior results can be interpreted in the context of the updated reference intervals. Chloride 103 98 - 107 mmol/L 07/08/2024 3:18 AM CDT LABORATORY Glucose 121(H) 70 - 99 mg/dL 07/08/2024 3:18 AM CDT [facility] Alkaline Phosphatase 63 40 - 150 U/L 07/08/2024 3:18 AM CDT [facility] AST 25 0 - 45 U/L 07/08/2024 3:18 AM CDT [facility] ALT 22 0 - 50 U/L 07/08/2024 3:18 AM CDT [facility] Protein Total 7.7 6.4 - 8.3 g/dL 07/08/2024 3:18 AM CDT [facility] Albumin 4.4 3.5 - 5.2 g/dL 07/08/2024 3:18 AM CDT [facility] Bilirubin Total 0.2 <=1.2 mg/dL 07/08/2024 3:18 AM CDT LABORATORY Blood VENOUS LINE / Unknown Venipuncture / Unknown 07/08/2024 2:53 AM CDT 07/08/2024 2:58 AM CDT Brian Perry MD LAB - BLOOD ORDERABL ES [facility]AT[facility] [address] [facility] Lab (1st floor, no room number) [place] [address], [facility] * (ABNORMAL) UA with Microscopic reflex to Culture (07/08/2024 1:35 AM CDT) Color Urine Straw Colorless, Straw, Light Yellow, Yellow 07/08/2024 1:46 AM CDT LABORATORY Appearance Urine Clear Clear 07/08/20 24 1:46 AM CDT LABORATORY Glucose Urine Negative Negative mg/dL 07/08/2024 1:46 AM CDT [facility] Bilirubin Urine Negative Negative 4 1:46 AM CDT LABORATORY Ketones Urine Negative Negative mg/dL 07/08/2024 1:46 AM CDT LABORATORY Specific [place] Urine 1.006 1.003 - 1.035 07/08/2024 1:46 AM CDT LABORATORY Blood Urine Moderate(A) Negative 07/08/2024 1:46 AM CDT LABORATORY pH Urine 6.0 5.0 - 7.0 07/08/2024 1:46 AM CDT [facility] Protein Albumin Urine 30(A) Negative mg/dL 07/08/2024 1:46 AM CDT LABORATORY Urobilinogen Urine Normal Normal, 2.0 mg/dL 07/08/2024 1:46 AM CDT LABORATORY Nitrite Urine Negative Negative 07/08/2024 1:46 AM CDT LABORATORY Leukocyte Esterase Urine Negative Negative 07/08/2024 1:46 AM CDT LABORATORY Bacteria Urine Few(A) None Seen /HPF 07/08/2024 1:46 AM CDT LABORATORY Mucus Urine Present(A) None Seen /LPF 07/08/2024 1:46 AM CDT LABORATORY RBC Urine 93(H) <=2 /HPF 07/08/2024 1:46 AM CDT LABORATORY WBC Urine 2 <=5 /HPF 07/08/2024 1:46 AM CDT LABORATORY Squamous Epithelials Urine <1 <=1 /HPF 07/08/2024 1:46 AM CDT LABORATORY Urine URINE SPECIMEN OBTAINED BY CLEAN CATCH PROCEDURE / Unknown Non-blood Collection / Unknown 07/08/2024 1:35 AM CDT 07/08/2024 1:39 AM CDT Narrative LABORATORY - 07/08/2024 1:46 AM CDT Urine Culture not indicated Brian Perry MD LAB - URINE ORDERABL ES LAB[facility]AT[facility] [address] Lab (1st floor, no room number) [place] [address], [facility] * ABSTRACT HIV (02/16/2022 4:05 PM CDT) HIV 1&2 EXT Non-Reacti ve [facility] Blood 02/16/2022 4:05 PM CDT Narrative [facility] [place] - 02/16/2022 4:05 PM CDT [facility] RESULT Provider Outside LAB - HIM EXTERNAL R ESULT [facility] [address], [place] [address] [phone] * PAP Smear - HIM Patient Reported (08/02/2021) PAP Smear - HIM Patient Reported Negative EXTERNAL LAB 08/02/2021 Narrative EXTERNAL LAB - 08/02/2021 Shiela Wren CMA ??Abstract Quality Initiatives3 days ago Please abstract the following data from this visit with this patient into the appropriate field in Epic: Tests that can be patient reported without a hard copy: Pap smear done by this group [facility] [place] on this date: 08/02/2021 and HPV done by this group [facility] on this date: 08/02/2021---report sent to abstraction Patient Reported LABORATORY EXTERNAL LAB External Lab from Last 3 Months or Most Recently Relevant to Health Maintenance Care Teams Front End Web Designer Relationship Specialty Start Date End Date No Ref-Primary, Physician PCP - General 07/08/24 Juana Jimenes PA-C [id number] [place] [address] Assigned PCP 01/15/24
--- OUTSIDE RECORDS SUMMARY | 2024-07-08 08:10 | XMS_ITS | Encounter Summary ---
Author Organization [facility] Address [address] [place] [address] Care Team Providers Care Visual Basic Developer Name Role Phone Sindhu Granda NP Primary Care Provider Sindhu Mason NP Unavailable Unavailable Juana Jimenes PAAdriaC Unavailable No Ref-Primary, Physician Primary Care Provider Encounter Details Date Type Department Care Team (Late st Contact Info) Description 11/26/2023 MyC Medical Advice [facility] [id number] [place] [phone] Sindhu Granda NP Social History Tobacco Use Types Packs/Day Years [...] week 06/06/2023 How often do you attend latter-day or buddhist serv ices? Never 06/06/2023 Do you belong to any clubs o r organizations such as latter-day groups, unions, fraternal or athletic groups, or [...] PHQ-2 Answer Date Recorded PHQ-2 Score 0 07/11/2023 [facility] of Occupat ional [facility] - Occupational Stress Questionnaire Answer Date Recorded [...] Answer Date Recorded Do you have housing? (Housin g is defined as stable permanent housing and does not include staying ouside in a car, in a tent, in an abandoned building, in an overnight detention, or couch-surfing.) Yes 07/11/2023 Are you worried [...] on file Sexual Orientation Not on file documented as of this encounter Plan of Treatment Not on file documented as of this encounter Visit Diagnoses Not on filedocumented in this encounter Care Teams Visual Basic Developer Relationship Specialty Start Date End Date Sindhu Granda NP PCP - General Family Medicine 06/06/23 01/10/24 No Ref-Primary, Physician PCP - General 07/08/24 Sindhu Granda NP Assigned PCP 05/16/23 01/14/24 Juana Jimenes PA-C [address] [place] [address] Assigned PCP 01/15/24 documented as of this encounter
--- OUTSIDE RECORDS SUMMARY | 2024-07-08 08:10 | XMS_ITS | Encounter Summary ---
Author Organization [facility] Address [address] [place] [address] Care Team Providers Care Pewter Caster Name Role Phone Juana Jimenes PA-C Unavailable No Ref-Primary, Physician Primary Care Provider Encounter Details Date Type Department Care Team (Latest Contact Info) Description 07/08/2024 Travel Social History Tobacco Use Types Packs/Day Years [...] How often do you attend anabaptist or voodoo serv ices? Never 06/06/2023 Do you belong [...] Answer Date Recorded PHQ-2 Score 0 12/21/2023 [facility] of Occupat ional Health - Occupational Stress [...] Answer Date Recorded Do you have housing? (Zoilain g is defined as stable permanent housing and does not include staying ouside in a car, in a tent, in an abandoned building, in an overnight long-term, or couch-surfing.) Yes 07/11/2023 Are you worried [...] on filedocumented in this encounter Care Teams Pewter Caster Relationship Specialty Start Date End Date No Ref-Primary, Physician PCP - General 07/08/24 Juana Jimenes PA-C [id number] [place] [address] Assigned PCP 01/15/24 documented as of this encounter
--- OUTSIDE RECORDS SUMMARY | 2024-07-08 08:10 | XMS_ITS | Encounter Summary ---
Author Organization [facility] Address [address] [place] [address] Care Team Providers Care Atg Java Developer Name Role Phone Sindhu Granda NP Primary Care Provider Sindhu Mason NP Unavailable Unavailable Juana Jimenes PA-C Unavailable No Ref-Primary, Physician Primary Care Provider Reason for Visit * Reason Onset Date Comments MyChart Communication 07/24/2023 Encounter Details Date Type Department Care Team (Latest Contact Info) Description 07/24/2023 MyC Medical Advice [address] [phone] Sindhu Granda NP MyChart Communication [...] week 06/06/2023 How often do you attend jainism or gnosticist serv ices? Never 06/06/2023 Do you belong to any clubs o r organizations such as jainism groups, unions, fraternal or athletic groups, or [...] Answer Date Recorded PHQ-2 Score 0 07/11/2023 [facility] of Occupat ional Health - Occupational Stress [...] Date Recorded Do you have housing? (Christian g is defined as stable permanent housing and does not include staying ouside in a car, in a tent, in an abandoned building, in an overnight correction, or couch-surfing.) Yes 07/11/2023 Are you worried [...] on file documented as of this encounter Miscellaneous Notes * Telephone Encounter - Sindhu Peraza NP - 08/03/2023 9:06 AM RADIOPHONE OPERATOR I have wrote the letter and please send in Sindhu Peraza NP on 08/03/2023 at 9:06 AM OPHONE OPERATOR * Telephone Encounter - Juana Jimenes PA-C - 07/25/2023 1:58 PM CDT Hold for pcp * Telephone Encounter - Mehreen Toledo RN - 07/24/2023 3:37 PM CDT See my chart and 07/12 encounter for note form PA team Mehreen Toledo RN documented in this encounter Plan of Treatment Not on file documented as of this encounter Visit Diagnoses Not on filedocumented in this encounter Care Teams Atg Java Developer Relationship Specialty Start Date End Date Sindhu Granda NP PCP - General Family Medicine 06/06/23 01/10/24 No Ref-Primary, Physician PCP - General 07/08/24 Sindhu Granda NP Assigned PCP 05/16/23 01/14/24 Juana Jimenes PA-C [id number] [place] [address] Assigned PCP 01/15/24 documented as of this encounter
--- OUTSIDE RECORDS SUMMARY | 2024-07-08 08:10 | XMS_ITS | Encounter Summary ---
Author Organization [facility] Address [address] [place] [address] Care Team Providers Care Service Crew Leader Name Role Phone Juana Jimenes PA-C Unavailable No Ref-Primary, Physician Primary Care Provider Reason for Visit * Reason Comments Back Pain Encounter Details Date Type Department Care Team (Late st Contact Info) Description 07/08/2024 2:31 AM CDT - 07/08/2024 5:45 AM CDT Emergency [facility] Emergency Dept [address] [place] [address] Brian Perry MD Acute pyelonephritis Discharge Disposition: Home or Self Care Social History Tobacco Use Types Packs/Day Years [...] week 06/06/2023 How often do you attend adventism or sikh serv ices? Never 06/06/2023 Do you belong to any clubs o r organizations such as adventism groups, unions, fraternal or athletic groups, or [...] Answer Date Recorded PHQ-2 Score 0 12/21/2023 [facility] - [...] in an abandoned building, in an overnight residential, or couch-surfing.) Yes 07/11/2023 Are you worried [...] on file documented as of this encounter Last Filed Vital Signs Vital Sign Reading [...] Mass Index 35.55 07/08/2024 12:59 AM CDT documented in this encounter Discharge Instructions * Attachments The following attachments cannot be sent through Care Everywhere. * Pyelonephritis (Romanian) documented in this encounter Medications at Time of Discharge Medication Sig Dispensed Refills Start Date End Date dicyclomine (BENTYL) 20 MG tabletIndications:Abd ominal pain, generalized Take 1 tablet (20 mg) by mouth 4 times daily as needed (abdominal pain) 40 tablet 08/28/2023 sertraline (ZOLOFT) 25 MG tabletIndications:Anx iety Take 1 tablet (25 mg) by mouth daily 90 tablet 3 07/11/2023 sulfamethoxazole-trim ethoprim (BACTRIM DS) 800-160 MG tablet Take 1 tablet by mouth 2 times daily for 10 days. 20 tablet 07/08/2024 07/18/2024 tirzepatide (MOUNJARO) 2.5 MG/0.5ML penIndications:Class 2 severe obesity due to excess calories with serious comorbidity and body mass index (BMI) of 36.0 to 36.9 in adult (H) Inject 2.5 mg Subcutaneous every 7 days 2 mL 07/11/2023 documented as of this encounter ED Notes * Brian Perry MD - 07/08/2024 3:33 AM CDT Emergency Department Note History of Present Illness Chief Complaint Back Pain HPI Rand Joy is a 23 year old female who presents with 2 days of worsening low back pain, right flank pain which has now radiated to the right lower quadrant. This is associated with hematuria and urinary frequency. No dysuria. She denies any vaginal bleeding. Last menstrual period was 1 month ago and was normal. No fevers. She notes associated nausea but no significant vomiting. No left-sided flank or abdominal pain. She has never had symptoms like this previously. She took 1 dose of ibuprofen earlier in the day however her pain worsened. She was seen at urgent care yesterday and prescribed Macrobid for presumed UTI. Despite taking 2 doses of this her symptoms have not improved. She denies any other symptoms at this time. Independent Historian None Review of External Notes None Past Medical History Medical History and Problem List No past medical history on file. Medications dicyclomine (BENTYL) 20 MG tablet sertraline (ZOLOFT) 25 MG tablet sulfamethoxazole-trimethoprim (BACTRIM DS) 800-160 MG tablet tirzepatide (MOUNJARO) 2.5 MG/0.5ML pen Surgical History No past surgical history on file. Physical Exam Patient Vitals for the past 24 hrs: BP Temp Temp src Pulse Resp SpO2 Height Weight 07/08/24 0059 137/84 98.3 ??F (36.8 ??C) Temporal 114 20 100 % 1.651 m (5' 5) 96.9 kg (213 lb 10 oz) Physical Exam General: Well appearing, nontoxic. Resting comfortably Head: Scalp, face, and head appear normal Eyes: Pupils are equal, round Conjunctivae non-injected and sclerae white ENT: The external nose is normal Pinnae are normal Neck: Normal range of motion There is no rigidity noted Trachea is in the midline CV: Regular rate and rhythm Normal S1/S2, no S3/S4 No murmur or rub. Radial pulses 2+ bilaterally. Resp: Lungs are clear and equal bilaterally There is no tachypnea No increased work of breathing No rales, wheezing, or rhonchi GI: Abdomen is soft, no rigidity or guarding No distension, or mass Mild RLQ and right flank/CVA tenderness. No rebound tenderness MS: Normal muscular tone Skin: No rash or acute skin lesions noted Neuro: Awake and alert Speech is normal and fluent Moves all extremities spontaneously Psych: Normal affect. Appropriate interactions. Diagnostics Lab Results Labs Ordered and Resulted from Time of ED Arrival to Time of ED Departure ROUTINE UA WITH MICROSCOPIC REFLEX TO CULTURE - Abnormal Result Value Color Urine Straw Appearance Urine Clear Glucose Urine Negative Bilirubin Urine Negative Ketones Urine Negative Specific [place] Urine 1.006 Blood Urine Moderate (*) pH Urine 6.0 Protein Albumin Urine 30 (*) Urobilinogen Urine Normal Nitrite Urine Negative Leukocyte Esterase Urine Negative Bacteria Urine Few (*) Mucus Urine Present (*) RBC Urine 93 (*) WBC Urine 2 Squamous Epithelials Urine <1 COMPREHENSIVE METABOLIC PANEL - Abnormal Sodium 139 Potassium 3.7 Carbon Dioxide (CO2) 20 (*) Anion Gap 16 (*) Urea Nitrogen 11.6 Creatinine 0.87 GFR Estimate >90 Calcium 8.5 (*) Chloride 103 Glucose 121 (*) Alkaline Phosphatase 63 AST 25 ALT 22 Protein Total 7.7 Albumin 4.4 Bilirubin Total 0.2 CBC WITH PLATELETS AND DIFFERENTIAL - Abnormal WBC Count 14.2 (*) RBC Count 5.77 (*) Hemoglobin 14.4 Hematocrit 45.2 MCV 78 MCH 25.0 (*) MCHC 31.9 RDW 13.4 Platelet Count 266 % Neutrophils 76 % Lymphocytes 15 % Monocytes 8 % Eosinophils 0 % Basophils 0 % Immature Granulocytes 0 NRBCs per 100 WBC 0 Absolute Neutrophils 10.8 (*) Absolute Lymphocytes 2.1 Absolute Monocytes 1.2 Absolute Eosinophils 0.1 Absolute Basophils 0.0 Absolute Immature Granulocytes 0.1 Absolute NRBCs 0.0 HCG QUALITATIVE - Normal hCG Serum Qualitative Negative Imaging CT Abdomen Pelvis w/o Contrast Final Result IMPRESSION: 1. No acute findings in the abdomen or pelvis. Independent Interpretation None ED Course Medications Administered Medications ondansetron (ZOFRAN) injection 4 mg (4 mg Intravenous $Given 07/08/24258) ketorolac (TORADOL) injection 15 mg (15 mg Intravenous $Given 07/08/24258) acetaminophen (TYLENOL) tablet 1,000 mg (1,000 mg Oral $Given 07/08/24 0300) sulfamethoxazole-trimethoprim (BACTRIM DS) 800-160 MG per tablet 1 tablet (1 tablet Oral $Given 07/08/24 0538) Procedures Procedures Discussion of Management None ED Course ED Course as of 07/08/24 0611 [facility] Jul 08, 2024 0244 Patient seen and evaluated 0520 Patient updated regarding findings and plan of care. Additional Documentation None Medical Decision Making / Diagnosis [facility] Diagnoses: None MIPS None MDM Rand Joy is a 23 year old female who presents with flank pain and other above symptoms in the setting of recently diagnosed UTI. She was started on Macrobid without improvement. On my evaluation she is well-appearing, hemodynamically stable and afebrile. Abdominal exam is benign withoutevidence of peritonitis or acute surgical emergency. CT scan of the abdomen pelvis was reassuring. No kidney stone or urinary tract obstruction. No appendicitis, cholecystitis or other acute intra-abdominal process. Laboratory studies show leukocytosis. Renal function is normal. LFTs are normal. hCG is negative. Urinalysis shows evidence of hematuria but no significant pyuria although patient hashad 2 doses of an antibiotic which may alter results. Unfortunately I cannot see her urinalysis results from the urgent care. Given her overall clinical picture this is most consistent with pyelonephritis. I have recommended changing from Macrobid to Bactrim for better coverage of nephritis. First dose given in the ED. Ongoing supportive care with Tylenol, ibuprofen and good oral fluid at home isrecommended. No other concerning findings or evidence of other pathology at this time. Close PCP follow-up is recommended. Return precautions were provided and the patient was discharged in stable and improved condition. Disposition The patient was discharged. Diagnosis ICD-10-CM 1. Acute pyelonephritis N10 Discharge Medications Discharge Medication List as of 07/08/2024 5:40 AM START taking these medications Details sulfamethoxazole-trimethoprim (BACTRIM DS) 800-160 MG tablet Take 1 tablet by mouth 2 times daily for 10 days., Disp-20 tablet, R-0, E-Prescribe MD Orlando Wray Ryan Clay, MD 07/08/24 0613 * Rand Hernandez RN - 07/08/2024 1:02 AM CDT At yesterday dx with UTI. On Macrobid BID x 5 days. Woke up tonight with worsening lower back pain that radiates to RUQ abd. Denies any fevers. Mild intermitt nausea. No difficulties with urination. No hx kidney stones. Did not take any OTC pain meds prior to arrival. Triage Assessment (Adult) Row Name 07/08/24 0102 Triage Assessment Airway WDL WDL Respiratory WDL Respiratory WDL WDL Skin Circulation/Temperature WDL Skin Circulation/Temperature WDL WDL Cardiac WDL Cardiac WDL WDL Peripheral/Neurovascular WDL Peripheral Neurovascular WDL WDL Cognitive/Neuro/Behavioral WDL Cognitive/Neuro/Behavioral WDL WDL documented in this encounter Plan of Treatment Not on file documented as of this encounter Procedures Procedure Name Priority Date/Time Associated Diagnosis Comments CT ABDOMEN PELVIS W/O CONTRAST STAT 07/08/2024 4:44 AM CDT CBC WITH PLATELETS AND DIFFERENTIAL STAT 07/08/2024 2:53 AM CDT CBC WITH PLATELETS & DIFFERENTIAL STAT 07/08/2024 2:53 AM CDT HCG QUALITATIVE STAT 07/08/2024 2:53 AM CDT COMPREHENSIVE METABOLIC PANEL STAT 07/08/2024 2:53 AM CDT ROUTINE UA WITH MICROSCOPIC REFLEX TO CULTURE STAT 07/08/2024 1:35 AM CDT documented in this encounter Results * CT Abdomen Pelvis w/o Contrast (07/08/2024 4:44 AM CDT) Anatomical Region Laterality Modality Abdomen/Pelvis, SUBRAD CT REINA DY, UMP CT ABDOMEN PELVIS, RAD CT Computed Tomography 07/08/2024 4:44 AM CDT Impressions 07/08/2024 5:02 AM CDT IMPRESSION: 1. ??No acute findings in the abdomen or pelvis. Narrative 07/08/2024 5:02 AM CDT EXAM: CT ABDOMEN PELVIS W/O CONTRAST LOCATION: [facility] DATE: 07/08/2024 INDICATION: hematuria, flank [...] EXAM: CT ABDOMEN PELVIS W/O CONTRAST LOCATION: [facility] DATE: 07/08/2024 INDICATION: hematuria, flank [...] the abdomen or pelvis. Brian Perry MD G CT ORDERABLES * (ABNORMAL) CBC with platelets [...] Perry MD LAB - BLOOD ORDERABL ES [facility] Acute [facility] Lab [address] Lab (1st floor, no room number) [place] [address] * HCG qualitative Blood (07/08/2024 2:53 AM CDT) hCG Serum Qualitative Negative Negative TIARRA 07/08/2024 3:43 AM CDT [facility] Comment:This test is for scr eening purposes. Results should be interpreted along with the clinical picture. Confirmation testing is available if warranted by ordering [id number], HCG Quantitative . Blood VENOUS LINE / Unknown Venipuncture / Unknown 07/08/2024 2:53 AM CDT 07/08/2024 2:58 AM CDT Brian [place] MD LAB - BLOOD ORDERABL ES Performing Organization Address [facility]/ZIP Co de Phone Number [facility] [address] Lab (1st floor, no room number) [place] [phone] * (ABNORMAL) Comprehensive metabolic panel (07/08/2024 2:53 AM CDT) Sodium 139 135 - 145 mmol/L 07/08/2024 3:18 AM CDT [facility] Potassium 3.7 3.4 - 5.3 mmol/L 07/08/2024 3:18 AM CDT [facility] Carbon Dioxide (CO2) 20(L) 22 - 29 mmol/L 07/08/2024 3:18 AM CDT [facility] Anion Gap 16(H) 7 - 15 mmol/L 07/08/2024 3:18 AM CDT [facility] Urea Nitrogen 11.6 6.0 - 20.0 mg/dL 07/08/2024 3:18 AM CDT [facility] Creatinine 0.87 0.51 - 0.95 mg/dL 07/08/2024 3:18 AM CDT [facility] GFR Estimate >90 >60 mL/min/1.7 3m2 [...] - 99 mg/dL 07/08/2024 3:18 AM CDT LABORATORY Alkaline Phosphatase 63 40 - 150 U/L 07/08/2024 3:18 AM CDT LABORATORY AST 25 0 - 45 U/L 07/08/2024 3:18 AM CDT LABORATORY ALT 22 0 - 50 U/L 07/08/2024 3:18 AM CDT LABORATORY Protein Total 7.7 6.4 - 8.3 g/dL 07/08/2024 3:18 AM CDT LABORATORY Albumin 4.4 3.5 - 5.2 g/dL 07/08/2024 3:18 AM CDT LABORATORY Bilirubin Total 0.2 <=1.2 mg/dL 07/08/2024 3:18 AM CDT LABORATORY Blood VENOUS LINE / Unknown Venipuncture / Unknown 07/08/2024 2:53 AM CDT 07/08/2024 2:58 AM CDT Brian Perry MD LAB - BLOOD ORDERABL ES LABORATORY [facility] [address] [facility]st [facility], no room number) [place] [address], [facility] * (ABNORMAL) UA with Microscopic reflex to Culture (07/08/2024 1:35 AM CDT) Color Urine Straw Colorless, Straw, Light Yellow, Yellow 07/08/2024 1:46 AM CDT [facility] Appearance Urine Clear Clear 07/08/20 24 1:46 AM CDT [facility] Glucose Urine Negative Negative mg/dL 07/08/2024 1:46 AM CDT [facility] Bilirubin Urine Negative Negative 1:46 AM CDT [facility] Ketones Urine Negative Negative mg/dL 07/08/2024 1:46 AM CDT [facility] Specific [place] Urine 1.006 1.003 - 1.035 07/08/2024 1:46 AM CDT [facility] Blood Urine Moderate(A) Negative 07/08/2024 1:46 AM CDT [facility] pH Urine 6.0 5.0 - 7.0 07/08/2024 1:46 AM CDT [facility] Protein Albumin Urine 30(A) Negative mg/dL 07/08/2024 1:46 AM CDT [facility] Urobilinogen Urine Normal Normal, 2.0 mg/dL 07/08/2024 1:46 AM CDT LABORATORY Nitrite Urine Negative Negative 07/08/2024 1:46 AM CDT [facility] Leukocyte Esterase Urine Negative Negative 07/08/2024 1:46 AM CDT LABORATORY Bacteria Urine Few(A) None Seen /HPF 07/08/2024 1:46 AM CDT LABORATORY Mucus Urine Present(A) None Seen /LPF 07/08/2024 1:46 AM CDT [facility] RBC Urine 93(H) <=2 /HPF 07/08/2024 [...] MD LAB - URINE ORDERABL ES LABORATORY [facility] Acute Care Lab [address] [facility] Lab (1st floor, no room number) [place] [address] documented in this encounter Visit Diagnoses Diagnosis Acute pyelonephritis Acute pyelonephritis without lesion of renal medullary necrosis documented in this encounter Administered Medications Inactive Administered Medications - up to 3 most recent administrations Medication Order MAR Action Action Date Dose Rate Site acetaminophen (TYLENOL) tablet 1,000 mg 1,000 mg, Oral, ONCE, On Sun07/08/24 at 0250, For 1 dose, Maximum acetaminophen dose from all sources = 75 mg/kg/day not to exceed 4 gram $Given 07/08/2024 3:00 AM CDT 1,000 mg ketorolac (TORADOL) injection 15 mg 15 mg, Intravenous, ONCE, On Sun07/08/24 at 0250, For 1 dose, Can cause pain on injection. If ordered intravenously (IV) : administer through a running maintenance fluid over 1 minute followed by a flush. If patient complains of pain on injection, may dilute 15-30 mg in 5 mL and push over 1 to 2 minutes. $Given 07/08/2024 2:59 AM CDT 15 mg ondansetron (ZOFRAN) injection 4 mg 4 mg, Intravenous, EVERY 30 MIN PRN, nausea, vomiting, Administer over 2-5 Minutes, Starting on Sun07/08/24 at 0248, For 3 doses, May repeat in 30 minutes as needed, up to 3 doses. $Given 07/08/2024 2:59 AM CDT 4 mg sulfamethoxazole-trimethoprim (BACTRIM DS) 800-160 MG per tablet 1 tablet STAT, 1 tablet, Oral, ONCE, On Sun07/08/24 at 0520, For 1 dose, Indications: Urinary Tract Infection $Given 07/08/2024 5:38 AM CDT 1 tablet documented in this encounter Active and Recently Administered Medications Times are shown in CDT. Scheduled Medication Order 07/06/2024 07/07/2024 07/08/2024 acetaminophen (TYLENOL) tablet 1,000 mg (COMPLETED) 1,000 mg, Oral, ONCE, On Sun07/08/24 at 0250, For 1 dose, Maximum acetaminophen dose from all sources = 75 mg/kg/day not to exceed 4 gram 0300 ($Given - Provi kenan: Rand Hernandez RN) ketorolac (TORADOL) injection 15 mg (COMPLETED) 15 mg, Intravenous, ONCE, On Sun07/08/24 at 0250, For 1 dose, Can cause pain on injection. If ordered intravenously (IV) : administer through a running maintenance fluid over 1 minute followed by a flush. If patient complains of pain on injection, may dilute 15-30 mg in 5 mL and push over 1 to 2 minutes. 0259 ($Given - Provi kenan: Rand Hernandez RN) sulfamethoxazole-trimethoprim (BACTRIM DS) 800-160 MG per tablet 1 tablet (COMPLETED) STAT, 1 tablet, Oral, ONCE, On Sun07/08/24 at 0520, For 1 dose, Indications: Urinary Tract Infection 0538 ($Given - Provi kenan: Yasmin Aquino RN) PRN Medication Order 07/06/2024 07/07/2024 07/08/2024 ondansetron (ZOFRAN) injection 4 mg 4 mg, Intravenous, EVERY 30 MIN PRN, nausea, vomiting, Administer over 2-5 Minutes, Starting on Sun07/08/24 at 0248, For 3 doses, May repeat in 30 minutes as needed, up to 3 doses. 0259 ($Given - Provi kenan: Rand Hernandez RN) documented in this encounter Care Teams Service Crew Leader Relationship Specialty Start Date End Date No Ref-Primary, Physician PCP - General 07/08/24 Juana Jimenes PA-C [id number] [place] [address] Assigned PCP 01/15/24 documented as of this encounter
--- OUTSIDE RECORDS SUMMARY | 2024-07-08 08:10 | XMS_ITS | Clinical Summary ---
Author Organization [place] Address [address] [place] [address] Care Team Providers Care Patcher Wood Welder Name Role Phone Juana Jimenes PA-C Unavailable No Ref-Primary, Physician Primary Care Provider Allergies No known active allergies Medications Medication [...] Active Active Problems No known active problems Encounters Date Type Department Care Team Description 07/08/2024 2:31 AM CDT - 07/08/2024 5:[address] [facility] Emergency Dept [address] [place] [address] Brian Perry MD Acute pyelonephritis Discharge Disposition: Home or Self Care 07/08/2024 Travel from Last 3 Months Social History Tobacco Use Types Packs/Day Years [...] week 06/06/2023 How often do you attend roman catholic or evangelical serv ices? Never 06/06/2023 Do you belong to any clubs o r organizations such as roman catholic groups, unions, fraternal or athletic groups, or [...] Answer Date Recorded PHQ-2 Score 0 12/21/2023 [facility] - Occupational [...] in an abandoned building, in an overnight retirement, or couch-surfing.) Yes 07/11/2023 Are you worried [...] 07/08/2024 12:59 AM CDT Plan of Treatment Health Maintenance Due Date Last Done Comments HPV IMMUNIZATION (1 - 3-dose series) 2013 HEPATITIS C SCREENING 2016 HEPATITIS B IMMUNIZATION (1 of 3 - 19+ 3-dose series) 2017 DTAP/TDAP/TD IMMUNIZATION (1 - Tdap) 12/31/2023 COVID-19 Vaccine (1 - 2023-2 5 season) 2024 INFLUENZA VACCINE (#1) 2024 ANNUAL REVIEW OF HM ORDERS 06/06/2024 06/06/2023 YEARLY PREVENTIVE VISIT 06/06/2024 06/06/2023 PAP 08/02/2024 08/02/2021, 08/02/2021, 08/02/2021 ADVANCE CARE PLANNING 06/06/2028 06/06/2023 RSV VACCINE (1 - 1-dose 75+ series) 2073 HIV SCREENING Completed 02/16/2022 PHQ-2 (once per calendar year) Completed 12/21/2023, 07/11/2023, 06/06/2023 MENINGITIS IMMUNIZATION Aged Out No l onger eligible based on patient's age to complete this topic Pneumococcal Vaccine: Pediatrics (0 to 5 Years) and At-Risk Patients (6 to 64 Years) Aged Out No longer eligible b ased on patient's age to complete this topic RSV MONOCLONAL ANTIBODY Aged Out No l onger eligible based on patient's age to complete this topic Procedures Procedure Name Priority Date/Time Associated Diagnosis [...] EXAM: CT ABDOMEN PELVIS W/O CONTRAST LOCATION: [facility] DATE: 07/08/2024 INDICATION: hematuria, flank pain COMPARISON: [...] EXAM: CT ABDOMEN PELVIS W/O CONTRAST LOCATION: [facility] DATE: 07/08/2024 INDICATION: hematuria, flank pain COMPARISON: [...] platelets and differential (07/08/2024 2:53 AM CDT) Pathologist [facility] WBC Count 14.2(H) 4.0 - 11.0 10e3/uL [...] MD LAB - BLOOD ORDERABL ES LABORATORY [facility] Care Lab [address] Lab (1st floor, no room number) [place] [address] * HCG qualitative Blood (07/08/2024 2:53 AM CDT) hCG Serum Qualitative Negative Negative TIARRA 07/08/2024 3:43 AM CDT [facility] Comment:This test is for scr eening purposes. Results should be interpreted along with the clinical picture. Confirmation testing is available if warranted by ordering [id number], HCG Quantitative . Blood VENOUS LINE / Unknown Venipuncture / Unknown 07/08/2024 2:53 AM CDT 07/08/2024 2:58 AM CDT Brian Perry MD LAB - BLOOD ORDERABL ES LABORATORY [facility] Acute Care Lab [address] Lab (1st floor, no room number) [place] [address], [facility] * (ABNORMAL) Comprehensive metabolic panel (07/08/2024 2:53 [...] >60 mL/min/1.7 3m2 07/08/2024 3:18 AM CDT [facility] Comment:eGFR calculated usin g 2020 CKD-EPI equation. Calcium 8.5(L) 8.8 - 10.4 mg/dL 07/08/2024 3:18 AM CDT [facility] Comment:Reference intervals for this test were updated on 04/08/2024 to reflect our healthy population more accurately. There may be differences in the flagging of prior results with similar values performed with this method. Those prior results can be interpreted in the context of the updated reference intervals. Chloride 103 98 - 107 mmol/L 07/08/2024 3:18 AM CDT [facility] Glucose 121(H) 70 - 99 mg/dL [...] MD LAB - BLOOD ORDERABL ES LABORATORY [facility] Acute Care Lab [address] [facility] Lab (1st floor, no room number) [place] [address], [facility] * (ABNORMAL) UA with Microscopic reflex to Culture (07/08/2024 1:35 AM CDT) Color Urine Straw Colorless, Straw, Light Yellow, Yellow 07/08/2024 1:46 AM CDT LABORATORY Appearance Urine Clear Clear 07/08/20 24 1:46 AM CDT LABORATORY Glucose Urine Negative Negative mg/dL 07/08/2024 1:46 AM CDT LABORATORY Bilirubin Urine Negative Negative 1:46 AM CDT LABORATORY Ketones Urine Negative Negative mg/dL 07/08/2024 1:46 AM CDT LABORATORY Specific [place] Urine 1.006 1.003 - 1.035 07/08/2024 1:46 AM CDT LABORATORY Blood Urine Moderate(A) Negative 07/08/2024 1:46 AM CDT LABORATORY pH Urine 6.0 5.0 - 7.0 07/08/2024 1:46 AM CDT LABORATORY Protein Albumin Urine 30(A) Negative mg/dL [...] 93(H) <=2 /HPF 07/08/2024 1:46 AM CDT [facility] WBC Urine 2 <=5 /HPF 07/08/2024 1:46 AM CDT [facility] Squamous Epithelials Urine <1 <=1 /HPF 07/08/2024 1:46 AM CDT [facility] Urine URINE SPECIMEN OBTAINED BY CLEAN CATCH PROCEDURE / Unknown Non-blood Collection / Unknown 07/08/2024 1:35 AM CDT 07/08/2024 1:39 AM CDT Narrative [facility] - 07/08/2024 1:46 AM CDT Urine Culture not indicated Brian Perry MD LAB - URINE ORDERABL ES LABORATORY [facility] Acute Care Lab [address] Lab (1st floor, no room number) [place] [address] * ABSTRACT HIV (02/16/2022 4:05 PM CDT) HIV 1&2 EXT Non-Reacti ve [facility] Blood 02/16/2022 4:05 PM CDT Narrative [facility] - 02/16/2022 4:05 PM CDT [facility] RESULT Provider Outside LAB - HIM EXTERNAL R ESULT [facility] [address] [place], [place] [id number] [place] [address] * PAP Smear - HIM Patient Reported (08/02/2021) PAP Smear - HIM Patient Reported Negative EXTERNAL LAB 08/02/2021 Narrative EXTERNAL LAB - 08/02/2021 Shiela Wren CMA ??Abstract Quality Initiatives3 days ago Please abstract the following data from this visit with this patient into the appropriate field in [facility]: Tests that can be patient reported without a hard copy: Pap smear done by this group [facility] [place] on this date: 08/02/2021 and HPV done by this group [facility] on this date: 08/02/2021---report sent to abstraction Patient Reported LABORATORY EXTERNAL LAB External Lab from Last 3 Months or Most Recently Relevant to Health Maintenance Care Teams Patcher Wood Welder Relationship Specialty Start Date End Date No Ref-Primary, Physician PCP - General 07/08/24 Juana Jimenes PA-C [phone] [place] [address] Assigned PCP 01/15/24
--- OUTSIDE RECORDS SUMMARY | 2024-07-08 08:10 | XMS_ITS | Encounter Summary ---
Author Organization [place] Address [address] [place] [address] Care Team Providers Care Candy Cutter Machine Name Role Phone Sindhu Granda NP Primary Care Provider Sindhu Mason NP Unavailable Unavailable Juana Jimenes PAAdriaC Unavailable No Ref-Primary, Physician Primary Care Provider Encounter Details Date Type Department Care Team (Late st Contact Info) Description 08/17/2023 My[facility] Medical Advice [address] [phone] Nadja Jeffers, ENVELOPE PATTERNMAKER Social History Tobacco Use Types Packs/Day Years [...] week 06/06/2023 How often do you attend latter day or yazidism serv ices? Never 06/06/2023 Do you belong to any clubs o r organizations such as latter day groups, unions, fraternal or athletic groups, or [...] Answer Date Recorded PHQ-2 Score 0 07/11/2023 [facility] of Occupat ional [facility] - Occupational Stress Questionnaire Answer Date [...] in an abandoned building, in an overnight senior living, or couch-surfing.) Yes 07/11/2023 Are you worried [...] on filedocumented in this encounter Care Teams Candy Cutter Machine Relationship Specialty Start Date End Date Sindhu Granda NP PCP - General Family Medicine 06/06/23 01/10/24 No Ref-Primary, Physician PCP - General 07/08/24 Sindhu Granda NP Assigned PCP 05/16/23 01/14/24 Juana Jimenes PA-C [id number] [place] [address] Assigned PCP 01/15/24 documented as of this encounter
--- OUTSIDE RECORDS SUMMARY | 2024-07-08 08:10 | XMS_ITS | Clinical Summary ---
Author Organization [facility] Address [address] [place] [address] Care Team Providers Care Child Adolescent Care Name Role Phone Unavailable Primary Care Provider Unavailabl e Source Comments You are receiving this document as you are listed as the primary care provider,follow-up provider, or the patient has been referred to you for consultation.This is in compliance with the Medicare and[facility] EHR Incentive Program,which states Providers who transition their patient to another setting of careor provider of care or refers their patient to another provider of care shouldprovide summary care record for each transition of care or referral. [employer] Allergies No known active allergies Medications Medication Sig Dispensed Refills Start Date End Date Status oxybutynin (DITROPAN) 5 MG tabletIndications:Fernando dder spasms Take 1 tablet by mouth 2 times daily. May take a 3rd pill as needed for urgency/pain. 270 Tablet 3 07/21/2022 Active Active Problems No known active problems Social History Tobacco Use Types Packs/Day Years Used Date Smoking Tobacco: Never Assessed Sex and Gender Information Value Date Recorded Sex Assigned at Not on file Gender Identity Not on file Sexual Orientation Not on file Plan of Treatment Health Maintenance Due Date Last Done Comments Cervical Cancer Screening Due 1998 Chlamydia 1998 Hep C Screening (Preventive Services) 1998 HPV Vaccine (1 - 3-dose series) 2013 HIV Screening (Preventive Services) 2014 Adult Preventive Visit 2016 DTaP/Tdap/Td (1 - Tdap) 2017 HepB (1) 2017 COVID-19 Vaccine (2023-2 5 season) 2024 Influenza (#1) 2024 Zoster/Shingles (1 of 2) 2048 HepA Aged Out No longer eligi ble based on patient's age to complete this topic Hib Aged Out No longer eligi ble based on patient's age to complete this topic IPV (Polio) Aged Out No longer eligi ble based on patient's age to complete this topic Infant RSV Aged Out No longer eligi ble based on patient's age to complete this topic MCV4 Aged Out No longer eligi ble based on patient's age to complete this topic Pneumococcal Aged Out No longer eligi ble based on patient's age to complete this topic
--- OUTSIDE RECORDS SUMMARY | 2024-07-08 08:10 | XMS_ITS | Encounter Summary ---
Author Organization [facility] Address [address] [place] [address] Care Team Providers Care Pelota Maker Name Role Phone Sindhu Granda NP Primary Care Provider Sindhu Mason NP Unavailable Unavailable Juana Jimenes PAAdriaC Unavailable No Ref-Primary, Physician Primary Care Provider Encounter Details Date Type Department Care Team (Late st Contact Info) Description 12/07/2023 MyC Medical Advice [address] [phone] Brenna Piper Social History Tobacco Use Types Packs/Day Years [...] week 06/06/2023 How often do you attend hinduism or confucianist serv ices? Never 06/06/2023 Do you belong to any clubs o r organizations such as hinduism groups, unions, fraternal or athletic groups, or [...] Answer Date Recorded PHQ-2 Score 0 07/11/2023 [facility] - Occupational Stress Questionnaire Answer Date Recorded [...] in an abandoned building, in an overnight usp, or couch-surfing.) Yes 07/11/2023 Are you worried [...] on filedocumented in this encounter Care Teams Pelota Maker Relationship Specialty Start Date End Date Sindhu Granda NP PCP - General Family Medicine 06/06/23 01/10/24 No Ref-Primary, Physician PCP - General 07/08/24 Sindhu Granda NP Assigned PCP 05/16/23 01/14/24 Juana Jimenes PA-C [id number] [place] [address] Assigned PCP 01/15/24 documented as of this encounter
== END 2024-07-07 12:46 | disposition home or self-care (01) ==
DX: R35.0 Frequency of micturition (principal); N39.0 Urinary tract infection, site not specified; N30.00 Acute cystitis without hematuria
CPT/HCPCS: 87086

== ENCOUNTER 2024-07-14 15:23 | Outpatient (CLI) | payer OTHER, SELFPAY ==
--- OUTSIDE RECORDS SUMMARY | 2024-07-17 14:00 | XMS_ITS | Encounter Summary ---
Author Organization [facility] Address [address] [place] [address] Care Team Providers Care Heating Equipment Repairer Name Role Phone Sindhu Granda NP Primary Care Provider Sindhu Mason NP Unavailable Unavailable Juana Jimenes PAAdriaC Unavailable No Ref-Primary, Physician Primary Care Provider Encounter Details Date Type Department Care Team (Late st Contact Info) Description 08/17/2023 MyC Medical Advice [address] [phone] Nadja Jeffers, CHIEF ENGINEER'S HELPER Social History Tobacco Use Types Packs/Day Years [...] week 06/06/2023 How often do you attend presybeterian or uatsdin serv ices? Never 06/06/2023 Do you belong to any clubs o r organizations such as presybeterian groups, unions, fraternal or athletic groups, or [...] Answer Date Recorded PHQ-2 Score 0 07/11/2023 [facility] of Occupat ional [facility] - Occupational Stress Questionnaire Answer Date [...] on filedocumented in this encounter Care Teams Heating Equipment Repairer Relationship Specialty Start Date End Date Sindhu Granda NP PCP - General Family Medicine 06/06/23 01/10/24 No Ref-Primary, Physician PCP - General 07/08/24 Sindhu Granda NP Assigned PCP 05/16/23 01/14/24 Juana Jimenes PA-C [id number] [place] [address] Assigned PCP 01/15/24 documented as of this encounter
--- OUTSIDE RECORDS SUMMARY | 2024-07-17 14:00 | XMS_ITS | Encounter Summary ---
Author Organization [facility] Address [address] [place] [address] Care Team Providers Care Horseback Riding Instructor Name Role Phone Juana Jimenes PA-C Unavailable [...] How often do you attend hinduism or catholic serv ices? Never 06/06/2023 Do you belong [...] Answer Date Recorded PHQ-2 Score 0 12/21/2023 [facility] of Occupat ional Health - Occupational Stress [...] in an abandoned building, in an overnight mcc, or couch-surfing.) Yes 07/11/2023 Are you worried [...] on filedocumented in this encounter Care Teams Horseback Riding Instructor Relationship Specialty Start Date End Date No Ref-Primary, Physician PCP - General 07/08/24 Juana Jimenes PA-C [id number] [place] [address] Assigned PCP 01/15/24 documented as of this encounter
--- OUTSIDE RECORDS SUMMARY | 2024-07-17 14:00 | XMS_ITS | Encounter Summary ---
Author Organization [facility] Address [address] [place] [address] Care Team Providers Care Machine Stone Polisher Apprentice Name Role Phone Sindhu Granda NP Primary Care Provider Sindhu Mason NP Unavailable Unavailable Juana Jimenes PA-C Unavailable No Ref-Primary, Physician Primary Care Provider Reason for Visit * Reason Onset Date Comments MyChart Communication 07/24/2023 Encounter Details Date Type Department Care Team (Latest Contact Info) Description 07/24/2023 MyC Medical Advice [address] [phone] Sindhu Granda NP MyChart Communication [...] week 06/06/2023 How often do you attend pentecostal or sabianism serv ices? Never 06/06/2023 Do you belong to any clubs o r organizations such as pentecostal groups, unions, fraternal or athletic groups, or [...] Answer Date Recorded PHQ-2 Score 0 07/11/2023 [facility] of Occupat ional Health - [...] Sindhu Peraza NP - 08/03/2023 9:06 AM DIRECT MAIL COORDINATOR I have wrote the letter and please send in Sindhu Peraza NP on 08/03/2023 at 9:[address] MA[address] COORDINATOR * Telephone Encounter - Juana Jimenes PA-C [...] on filedocumented in this encounter Care Teams Machine Stone Polisher Apprentice Relationship Specialty Start Date End Date Sindhu Granda NP PCP - General Family Medicine 06/06/23 01/10/24 No Ref-Primary, Physician PCP - General 07/08/24 Sindhu Granda NP Assigned PCP 05/16/23 01/14/24 Juana Jimenes PA-C [id number] [place] [address] Assigned PCP 01/15/24 documented as of this encounter
--- OUTSIDE RECORDS SUMMARY | 2024-07-17 14:00 | XMS_ITS | Encounter Summary ---
Author Organization [place] Address [address] [place] [address] Care Team Providers Care Trekking Guide Name Role Phone Sindhu Granda NP Primary Care Provider Sindhu Mason NP Unavailable Unavailable Juana Jimenes PAAdriaC Unavailable No Ref-Primary, Physician Primary Care Provider Encounter Details Date Type Department Care Team (Late st Contact Info) Description 11/26/2023 MyC Medical Advice [facility] [id number] [place] [phone] Sindhu Granda NP Social History Tobacco [...] week 06/06/2023 How often do you attend synagogue or scientology serv ices? Never 06/06/2023 Do you belong to any clubs o r organizations such as synagogue groups, unions, fraternal or athletic groups, or [...] Answer Date Recorded PHQ-2 Score 0 07/11/2023 [facility] of Occupat ional [facility] - Occupational Stress Questionnaire Answer Date [...] on filedocumented in this encounter Care Teams Trekking Guide Relationship Specialty Start Date End Date Sindhu Granda NP PCP - General Family Medicine 06/06/23 01/10/24 No Ref-Primary, Physician PCP - General 07/08/24 Sindhu Granda NP Assigned PCP 05/16/23 01/14/24 Juana Jimenes PA-C [id number] [place] [address] Assigned PCP 01/15/24 documented as of this encounter
--- OUTSIDE RECORDS SUMMARY | 2024-07-17 14:00 | XMS_ITS | Referral Summary ---
Author Organization [place] Address [address] [place] [address] Care Team Providers Care Certified Nurse Aide Name Role Phone Juana Jimenes PA-C Unavailable No Ref-Primary, Physician Primary Care Provider Encounters Date Type Department Care Team Description 07/08/2024 Travel 07/08/2024 2:31 AM CDT - 07/08/2024 5:[address] [facility] Emergency Dept [address] [place] [address] Brian Perry MD Acute pyelonephritis Discharge Disposition: [...] week 06/06/2023 How often do you attend advent or cheondoism serv ices? Never 06/06/2023 Do you belong to any clubs o r organizations such as advent groups, unions, fraternal or athletic groups, or [...] Answer Date Recorded PHQ-2 Score 0 12/21/2023 [facility] of Occupat ional Health - Occupational [...] in an abandoned building, in an overnight prison, or couch-surfing.) Yes 07/11/2023 Are you worried [...] EXAM: CT ABDOMEN PELVIS W/O CONTRAST LOCATION: [facility] DATE: 07/08/2024 INDICATION: hematuria, flank [...] EXAM: CT ABDOMEN PELVIS W/O CONTRAST LOCATION: [facility] DATE: 07/08/2024 INDICATION: hematuria, flank [...] the abdomen or pelvis. Brian Perry MD [facility] ORDERABLES Final Result * (ABNORMAL) CBC [...] ORDERABLES Final R esult Performing Organization Address City/[facility]/ZIP Co de Phone Number LABORATORY [facility] Acute Care Lab [address] Lab (1st floor, no room number) [address] [place] [address] * HCG qualitative Blood (07/08/2024 2:53 AM CDT) Pathologist [facility] Emergency Department hCG Serum Qualitative Negative Negative TIARRA 07/08/2024 3:43 AM CDT LABORATORY Comment:This test is for scr eening purposes. Results should be interpreted along with the clinical picture. Confirmation testing is available if warranted by ordering [id number], HCG Quantitative . Blood VENOUS LINE / Unknown Venipuncture / Unknown 07/08/2024 2:53 AM CDT 07/08/2024 2:58 AM CDT us Brian Perry MD LAB - BLOOD ORDERABLES Final R esult Performing Organization Address [facility]/ZIP Co de Phone Number LABORATORY [facility] Acute Care Lab [address] Lab (1st floor, no room number) [address] [place] [address] * (ABNORMAL) Comprehensive metabolic panel (07/08/2024 2:53 AM CDT) Pathologist [facility] Emergency Department Sodium 139 135 - 145 mmol/L 07/08/2024 [...] - BLOOD ORDERABLES Final R esult LABORATORY [facility] Acute Care Lab [address] [facility] Lab (1st floor, no room number) [place] [address], [facility] * (ABNORMAL) UA with Microscopic [...] 07/08/2024 1:46 AM CDT RH LABORATORY Specific [place] Urine 1.006 1.003 - 1.035 07/08/2024 1:46 [...] URINE ORDERABLES Final R esult RH LABORATORY [facility] Acute Care Lab [address] Lab (1st floor, no room number) [place] [address], [facility] * ABSTRACT HIV (02/16/2022 4:05 PM CDT) HIV 1&2 EXT [facility]acti [facility] Blood 02/16/2022 4:05 PM CDT Narrative LABCO - [facility]ARDS - 02/16/2022 4:05 PM CDT [facility] LAB RESULT Provider Outside LAB - HIM EXTERNAL RESULT Final Result [facility] [address] [place] [address] [phone] * PAP Smear - HIM Patient Reported [...] copy: Pap smear done by this group [facility] on this date: 08/02/2021 and HPV done by this group [facility] on this date: 08/02/2021---report sent to abstraction us Patient Reported LABORATORY Final Result EXTERNAL LAB External Lab from Last 3 Months or Most Recently Relevant to Health Maintenance Insurance [facility] [employer] [facility] Care Teams Certified Nurse Aide Relationship Specialty Start Date End Date No Ref-Primary, Physician PCP - General 07/08/24 Juana Jimenes PA-C [id number] [place] [address] Assigned PCP 01/15/24
--- OUTSIDE RECORDS SUMMARY | 2024-07-17 14:00 | XMS_ITS | Encounter Summary ---
Author Organization [place] Address [address] [place] [address] Care Team Providers Care Tap Out Operator Name Role Phone Juana Jimenes PA-C Unavailable No Ref-Primary, Physician Primary Care Provider Reason for Visit * Reason Comments Back Pain Encounter Details Date Type Department Care Team (Late st Contact Info) Description 07/08/2024 2:31 AM CDT - 07/08/2024 5:45 AM CDT Emergency [facility] Emergency Dept [address] [place] [address] Brian Perry MD Acute pyelonephritis Discharge Disposition: [...] week 06/06/2023 How often do you attend yazdanism or evangelical serv ices? Never 06/06/2023 Do you belong to any clubs o r organizations such as yazdanism groups, unions, fraternal or athletic groups, or [...] Answer Date Recorded PHQ-2 Score 0 12/21/2023 [facility] of Occupat ional Health - Occupational [...] in an abandoned building, in an overnight longterm, or couch-surfing.) Yes 07/11/2023 Are you worried [...] be sent through Care Everywhere. * Pyelonephritis (Russian) documented in this encounter Medications at Time [...] Bilirubin Urine Negative Ketones Urine Negative Specific [place] Urine 1.006 Blood Urine Moderate (*) pH [...] 1 tablet (1 tablet Oral $Given 07/08/24 0527) Procedures Procedures Discussion of Management None ED Course ED Course as of 07/08/24 0611 [facility] Jul 08, 2024 0244 Patient seen and evaluated 0520 Patient updated regarding findings and plan of care. Additional Documentation None Medical Decision Making / Diagnosis [facility] Diagnoses: None MIPS None MDM Rand [...] EXAM: CT ABDOMEN PELVIS W/O CONTRAST LOCATION: [facility] DATE: 07/08/2024 INDICATION: hematuria, flank pain [...] EXAM: CT ABDOMEN PELVIS W/O CONTRAST LOCATION: [facility] DATE: 07/08/2024 INDICATION: hematuria, flank pain [...] - BLOOD ORDERABLES Final R esult LABORATORY [facility] Care Lab [address] Lab (1st floor, no room number) [place] [phone] [place] [address] * HCG qualitative Blood (07/08/2024 2:53 AM CDT) Pathologist [facility] hCG Serum Qualitative Negative Negative TIARRA 07/08/2024 3:43 AM CDT LABORATORY Comment:This test is for scr eening purposes. Results should be interpreted along with the clinical picture. Confirmation testing is available if warranted by ordering [id number], HCG Quantitative . Blood VENOUS LINE / Unknown Venipuncture / Unknown 07/08/2024 2:53 AM CDT 07/08/2024 2:58 AM CDT us Brian Perry MD LAB - BLOOD ORDERABLES Final R esult Performing Organization Address City/[facility]/ZIP Co de Phone Number [facility] Care Lab [address] Lab (1st floor, no room number) [place] [phone] [place] [address] * (ABNORMAL) Comprehensive metabolic panel (07/08/2024 2:53 AM CDT) Pathologist [facility] Sodium 139 135 - 145 mmol/L 07/08/2024 [...] - BLOOD ORDERABLES Final R esult LABORATORY [facility] Acute Care Lab [address] Lab (1st floor, no room number) [place] [address], [facility] * (ABNORMAL) UA with Microscopic reflex [...] mg/dL 07/08/2024 1:46 AM CDT LABORATORY Specific [place] Urine 1.006 1.003 - 1.035 07/08/2024 1:46 [...] LAB - URINE ORDERABLES Final R esult [facility] Acute Care Lab [address] [facility] Lab (1st floor, no room number) [place] [address], [facility] documented in this encounter Visit Diagnoses Diagnosis [...] RN) documented in this encounter Care Teams Tap Out Operator Relationship Specialty Start Date End Date No Ref-Primary, Physician PCP - General 07/08/24 Juana Jimenes PA-C [id number] [place] [address] Assigned PCP 01/15/24 documented as of this encounter
--- OUTSIDE RECORDS SUMMARY | 2024-07-17 14:00 | XMS_ITS | Encounter Summary ---
Author Organization [facility] Address [address] [place] [address] Care Team Providers Care Open Hearth Melter Name Role Phone Sindhu Granda NP Primary Care Provider Sindhu Mason NP Unavailable Unavailable Juana Jimenes PAAdriaC Unavailable No Ref-Primary, Physician Primary Care Provider Encounter Details Date Type Department Care Team (Late st Contact Info) Description 12/07/2023 [facility] Medical Advice [facility] [id number] [place] [id number] Brenna Piper Social History Tobacco Use [...] week 06/06/2023 How often do you attend rastafarian or nondenominational serv ices? Never 06/06/2023 Do you belong to any clubs o r organizations such as rastafarian groups, unions, fraternal or athletic groups, or [...] Answer Date Recorded PHQ-2 Score 0 07/11/2023 [facility] - Occupational Stress Questionnaire Answer Date [...] on filedocumented in this encounter Care Teams Open Hearth Melter Relationship Specialty Start Date End Date Sindhu Granda NP PCP - General Family Medicine 06/06/23 01/10/24 No Ref-Primary, Physician PCP - General 07/08/24 Sindhu Granda NP Assigned PCP 05/16/23 01/14/24 Juana Jimenes PA-C [id number] [place] [address] Assigned PCP 01/15/24 documented as of this encounter
--- OUTSIDE RECORDS SUMMARY | 2024-07-17 14:00 | XMS_ITS | Encounter Summary ---
Author Organization [place] Address [address] [place] [address] Care Team Providers Care Kardex Clerk Name Role Phone Sindhu Granda NP Primary Care Provider Sindhu Mason NP Unavailable Unavailable Juana Jimenes PA-C Unavailable No Ref-Primary, Physician Primary Care Provider Reason for Visit * Reason Onset Date Comments MyChart Communication 06/07/2023 Encounter Details Date Type Department Care Team (Latest Contact Info) Description 06/07/2023 MyC Medical Advice [address] [phone] Sindhu Granda NP MyChart Communication [...] week 06/06/2023 How often do you attend christian or restorationist serv ices? Never 06/06/2023 Do you belong to any clubs o r organizations such as christian groups, unions, fraternal or athletic groups, or [...] Answer Date Recorded PHQ-2 Score 1 06/06/2023 [facility] - [...] in a detention (including now)? No 06/06/2023 Comments No Sex [...] on filedocumented in this encounter Care Teams Kardex Clerk Relationship Specialty Start Date End Date Sindhu Granda NP PCP - General Family Medicine 06/06/23 01/10/24 No Ref-Primary, Physician PCP - General 07/08/24 Sindhu Granda NP Assigned PCP 05/16/23 01/14/24 Juana Jimenes PA-C [id number] [place] [address] Assigned PCP 01/15/24 documented as of this encounter
--- OUTSIDE RECORDS SUMMARY | 2024-07-17 14:00 | XMS_ITS | Clinical Summary ---
Author Organization [facility] Address [address] [place] [address] Care Team Providers Care Venetian Blind Tape Cutter Name Role Phone Juana Jimenes PA-C Unavailable [...] AM CDT - 07/08/2024 5:45 AM CDT [facility] Emergency Dept [address] [place] [address] Brian Perry MD Acute pyelonephritis Discharge Disposition: [...] week 06/06/2023 How often do you attend yarsani or sikhism serv ices? Never 06/06/2023 Do you belong to any clubs o r organizations such as yarsani groups, unions, fraternal or athletic groups, or [...] Answer Date Recorded PHQ-2 Score 0 12/21/2023 [facility] - Occupational Stress [...] in an abandoned building, in an overnight long term, or couch-surfing.) Yes 07/11/2023 Are you worried [...] EXAM: CT ABDOMEN PELVIS W/O CONTRAST LOCATION: [facility] DATE: 07/08/2024 INDICATION: hematuria, flank pain [...] EXAM: CT ABDOMEN PELVIS W/O CONTRAST LOCATION: [facility] DATE: 07/08/2024 INDICATION: hematuria, flank pain [...] AM CDT 07/08/2024 2:58 AM CDT us Biran Perry MD LAB - BLOOD ORDERABLES Final R esult [facility] Lab [address] Lab (1st floor, no room number) [place] [address], [facility] * HCG qualitative Blood (07/08/2024 2:53 AM CDT) hCG Serum Qualitative Negative Negative TIARRA 07/08/2024 3:43 AM CDT [facility] Comment:This test is for scr eening purposes. Results should be interpreted along with the clinical picture. Confirmation testing is available if warranted by ordering [id number], HCG Quantitative . Blood VENOUS LINE / Unknown Venipuncture / Unknown 07/08/2024 2:53 AM CDT 07/08/2024 2:58 AM CDT us Brian Perry MD LAB - BLOOD ORDERABLES Final R esult [facility] Lab [address] [facility] Lab (1st floor, no room number) [place] [address], [facility] * (ABNORMAL) Comprehensive metabolic panel [...] - BLOOD ORDERABLES Final R esult LABORATORY [facility] [address] [facility] Lab (1st floor, no room number) [place] [address], [facility] * (ABNORMAL) UA with Microscopic [...] mg/dL 07/08/2024 1:46 AM CDT LABORATORY [facility] [place] Urine 1.006 1.003 - 1.035 07/08/2024 1:46 [...] - URINE ORDERABLES Final R esult LABORATORY [facility] Lab [address] Lab (1st floor, no room number) [place] [address], [facility] * ABSTRACT HIV (02/16/2022 4:05 PM CDT) Pathologist [facility] HIV 1&2 EXT Non-Reacti ve [facility] Blood 02/16/2022 4:05 PM CDT [facility] - 02/16/2022 4:05 PM CDT [facility] LAB RESULT us Provider Outside LAB - HIM EXTERNAL RESULT Final Result [facility] [address] [place], [place] [id number] [place] [address] * PAP Smear - HIM Patient Reported (08/02/2021) PAP Smear - HIM Patient Reported Negative EXTERNAL LAB 08/02/2021 Narrative EXTERNAL LAB - 08/02/2021 Shiela Wren, HCRIS ??Abstract Quality Initiatives3 days ago Please abstract the following data from this visit with this patient into the appropriate field in Epic: Tests that can be patient reported without a hard copy: Pap smear done by this group [facility] [place] on this date: 08/02/2021 and HPV done by this group [facility] on this date: 08/02/2021---report sent to abstraction us Patient Reported LABORATORY Final Result EXTERNAL LAB External Lab from Last 3 Months or Most Recently Relevant to Health Maintenance Insurance [facility] Care Teams Venetian Blind Tape Cutter Relationship Specialty Start Date End Date No Ref-Primary, Physician PCP - General 07/08/24 Juana Jimenes PA-C [id number] [address] Assigned PCP 01/15/24
--- OUTSIDE RECORDS SUMMARY | 2024-07-17 14:01 | XMS_ITS | Clinical Summary ---
Author Organization [facility] Address [address] [place] [address] Care Team Providers Care Corsets Salesperson Name Role Phone Unavailable Primary Care Provider Unavailabl e Source Comments You are receiving this document as you are listed as the primary care provider,follow-up provider, or the patient has been referred to you for consultation.This is in compliance with the Medicare and[facility] EHR Incentive Program,which states Providers who transition their patient to another setting of careor provider of care or refers their patient to another provider of care shouldprovide summary care record for each transition of care or referral. [facility] Allergies No known active allergies Medications Medication [...]
== END 2024-07-14 15:24 | disposition home or self-care (01) ==
LOC: NFLDREF 07-17 13:58
DX: R10.9 Unspecified abdominal pain (principal); N89.8 Other specified noninflammatory disorders of vagina; N76.0 Acute vaginitis; B96.89 Other specified bacterial agents as the cause of diseases classified elsewhere; Z11.3 Encounter for screening for infections with a predominantly sexual mode of transmission
CPT/HCPCS: 87086; 87491; 87591

== ENCOUNTER 2024-07-17 11:09 | Outpatient (CLI) | payer OTHER, SELFPAY ==
--- OUTSIDE RECORDS SUMMARY | 2024-07-17 11:13 | XMS_ITS | Encounter Summary ---
Author Organization [facility] Address [address] [place] [address] Care Team Providers Care Vacuum Cleaner Assembler Name Role Phone Juana Jimenes PA-C Unavailable [...] How often do you attend adventism or muslim serv ices? Never 06/06/2023 Do you belong [...] Answer Date Recorded PHQ-2 Score 0 12/21/2023 [facility] of Occupat ional Health - Occupational Stress [...] in an abandoned building, in an overnight assisted, or couch-surfing.) Yes 07/11/2023 Are you worried [...] by your partner or ex-partner? No 07/11/2023 Comments No Sex and Gender Information Value Date Recorded Sex Assigned at Not on file Legal Sex Female 11:28 AM CDT Gender Identity Not on file Sexual Orientation Not on file documented as of this encounter Plan of Treatment Not on file documented as of this encounter Visit Diagnoses Not on filedocumented in this encounter Care Teams Vacuum Cleaner Assembler Relationship Specialty Start Date End Date No Ref-Primary, Physician PCP - General 07/08/24 Juana Jimenes PA-C [address] [place] [address] Assigned PCP 01/15/24 documented as of this encounter
--- OUTSIDE RECORDS SUMMARY | 2024-07-17 11:13 | XMS_ITS | Referral Summary ---
Author Organization [facility] Address [address] [place] [address] Care Team Providers Care Sustainable Design Coordinator Name Role Phone Juana Jimenes PA-C Unavailable No Ref-Primary, Physician Primary Care Provider Encounters Date Type Department Care Team Description 07/08/2024 Travel 07/08/2024 2:31 AM CDT - 07/08/2024 5:45 AM CDT Emergency [facility] Emergency Dept [address] [place] [address] Brian Perry MD Acute pyelonephritis Discharge Disposition: Home or Self Care from Last 3 Months Allergies No known active allergies Medications sertraline (ZOLOFT) 25 MG tabletIndicatio ns:Anxiety Take 1 tablet (25 mg) by mouth daily 90 tablet 3 3 Active Additional Information Patient not taking.Reported on 11/25/2023 tirzepatide (MOUNJARO) 2.5 MG/0.5ML penIndications: Class 2 severe obesity due to excess calories with serious comorbidity and body mass index (BMI) of 36.0 to 36.9 in adult (H) Inject 2.5 mg Subcutaneous every 7 days 2 mL 3 Active Additional Information Patient not taking.Reported on 11/25/2023 dicyclomine (BENTYL) 20 MG tabletIndicatio ns:Abdominal pain, generalized Take 1 tablet (20 mg) by mouth 4 times daily as needed (abdominal pain) 40 tablet 3 Active Additional Information Patient not taking.Reported on 12/21/2023 sulfamethoxazol e-trimethoprim (BACTRIM DS) 800-160 MG tablet Take 1 tablet by mouth 2 times daily for 10 days. 20 tablet 4 07/18/20 24 Active Active Problems No known active problems [...] week 06/06/2023 How often do you attend muslim or latter day serv ices? Never 06/06/2023 Do you belong to any clubs o r organizations such as muslim groups, unions, fraternal or athletic groups, or [...] Answer Date Recorded PHQ-2 Score 0 12/21/2023 [facility] of Occupat ional Health - Occupational Stress [...] in an abandoned building, in an overnight alf, or couch-surfing.) Yes 07/11/2023 Are you worried [...] EXAM: CT ABDOMEN PELVIS W/O CONTRAST LOCATION: [facility] DATE: 07/08/2024 INDICATION: hematuria, flank pain [...] EXAM: CT ABDOMEN PELVIS W/O CONTRAST LOCATION: [facility] DATE: 07/08/2024 INDICATION: hematuria, flank pain [...] the abdomen or pelvis. Brian Perry MD [facility] CT ORDERABLES Final Result * (ABNORMAL) CBC with platelets and differential [...] CDT Brian Perry MD LAB - BLOOD ORDERABLES Final R esult Performing Organization Address City/[facility]/ZIP Co de Phone Number LABORATORY [facility] Acute Care Lab [address] Lab (1st floor, no room number) [address] [place] [address] * HCG qualitative Blood (07/08/2024 2:53 AM CDT) Pathologist [facility] hCG Serum Qualitative Negative Negative TIARRA 07/08/2024 3:43 AM CDT LABORATORY Comment:This test is for scr eening purposes. Results should be interpreted along with the clinical picture. Confirmation testing is available if warranted by ordering [id number], HCG Quantitative . Blood VENOUS LINE / Unknown Venipuncture / Unknown 07/08/2024 2:53 AM CDT 07/08/2024 2:58 AM CDT us Brian Perry MD LAB - BLOOD ORDERABLES Final R esult Performing Organization Address [facility]/ZIP Co de Phone Number LABORATORY [facility] Acute Care Lab [address] Lab (1st floor, no room number) [address] [place] [address] * (ABNORMAL) Comprehensive metabolic panel (07/08/2024 2:53 AM CDT) Pathologist [facility] Sodium 139 135 - 145 mmol/L 07/08/2024 [...] 3:18 AM CDT LABORATORY Comment:eGFR calculated usin g 2020 CKD-EPI [...] 2:53 AM CDT 07/08/2024 2:58 AM CDT us Brian Perry MD LAB - BLOOD ORDERABLES Final R esult LABORATORY [facility] Acute Care Lab [address] Lab (1st floor, no room number) [place] [address], [facility] * (ABNORMAL) UA with Microscopic [...] 07/08/2024 1:46 AM CDT [facility] LABORATORY Specific [place] Urine 1.006 1.003 - 1.035 07/08/2024 1:46 AM CDT [facility] LABORATORY Blood Urine Moderate(A) Negative 07/08/2024 1:46 AM CDT [facility] LABORATORY pH Urine 6.0 5.0 - 7.0 07/08/2024 1:46 AM CDT [facility] LABORATORY Protein Albumin Urine 30(A) Negative mg/dL 07/08/2024 1:46 AM CDT [facility] LABORATORY Urobilinogen Urine Normal Normal, 2.0 mg/dL 07/08/2024 1:46 AM CDT [facility] LABORATORY Nitrite Urine Negative Negative 07/08/2024 1:46 AM CDT [facility] LABORATORY Leukocyte Esterase Urine Negative Negative 07/08/2024 1:46 AM CDT [facility] LABORATORY Bacteria Urine Few(A) None Seen /HPF 07/08/2024 1:46 AM CDT [facility] LABORATORY Mucus Urine Present(A) None Seen /LPF [...] 1:46 AM CDT Urine Culture not indicated us Brian Perry MD LAB - URINE ORDERABLES Final R esult [facility] LABORATORY [facility] Lab [address] Lab (1st floor, no room number) [place] [address], [facility] * ABSTRACT HIV (02/16/2022 4:05 PM CDT) HIV 1&2 EXT Non-Reacti ve [facility] Blood 02/16/2022 4:05 PM CDT Narrative [facility] - [place] - 02/16/2022 4:05 PM CDT [facility] LAB RESULT Provider Outside LAB - HIM EXTERNAL RESULT Final Result [facility] [address] [place] [address] [phone] * PAP Smear - HIM Patient Reported [...] copy: Pap smear done by this group REINFORCED CONCRETE INSPECT[facility] [place] on this date: 08/02/2021 and HPV done by this group REINFORC[facility] CONCRETE INSPECTOR clinic on this date: 08/02/2021---report sent to abstraction us Patient Reported LABORATORY Final Result EXTERNAL LAB External Lab from Last 3 Months or Most Recently Relevant to Health Maintenance Insurance [facility] INTEGRATED SERVICES [facility] [place] [place] Address: [address] [address] Care Teams Sustainable Design Coordinator Relationship Specialty Start Date End Date No Ref-Primary, Physician PCP - General 07/08/24 Juana Jimenes PA-C [id number] [place] [address] Assigned PCP 01/15/24
--- OUTSIDE RECORDS SUMMARY | 2024-07-17 11:13 | XMS_ITS | Clinical Summary ---
Author Organization [facility] Address [address] [place] [address] Care Team Providers Care Space Sciences Director Name Role Phone Juana Jimenes PA-C Unavailable No Ref-Primary, Physician Primary Care Provider Allergies No known active allergies Medications sertraline [...] AM CDT - 07/08/2024 5:45 AM CDT [facility] Emergency Dept [address] [place] [address] Brian Perry MD Acute pyelonephritis Discharge Disposition: [...] week 06/06/2023 How often do you attend mosque or alevism serv ices? Never 06/06/2023 Do you belong to any clubs o r organizations such as mosque groups, unions, fraternal or athletic groups, or [...] Answer Date Recorded PHQ-2 Score 0 12/21/2023 [facility] of Occupat ional Health - Occupational Stress [...] in an abandoned building, in an overnight custodial, or couch-surfing.) Yes 07/11/2023 Are you worried [...] IMMUNIZATION (1 - Tdap) 12/31/2023 COVID-19 Vaccine ( - 2023-2 5 season) 2024 INFLUENZA VACCINE [...] EXAM: CT ABDOMEN PELVIS W/O CONTRAST LOCATION: [facility] DATE: 07/08/2024 INDICATION: hematuria, flank pain [...] EXAM: CT ABDOMEN PELVIS W/O CONTRAST LOCATION: [facility] DATE: 07/08/2024 INDICATION: hematuria, flank pain [...] the abdomen or pelvis. Brian Perry MD IM CT ORDERABLES Final Result * (ABNORMAL) CBC [...] LAB - BLOOD ORDERABLES Final R esult RH LABORATORY [facility] Acute Care Lab [address] Lab (1st floor, no room number) [place] [address], [facility] * HCG qualitative Blood (07/08/2024 2:53 AM CDT) hCG Serum Qualitative Negative Negative TIARRA 07/08/2024 3:43 AM CDT [facility] LABORATORY Comment:This test is for scr eening purposes. Results should be interpreted along with the clinical picture. Confirmation testing is available if warranted by ordering [id number], HCG Quantitative . Blood VENOUS LINE / Unknown Venipuncture / Unknown 07/08/2024 2:53 AM CDT 07/08/2024 2:58 AM CDT us Brian Perry MD LAB - BLOOD ORDERABLES Final R esult RH LABORATORY [facility] Acute Care Lab [address] [facility] Lab (1st floor, no room number) [place] [address], [facility] * (ABNORMAL) Comprehensive metabolic panel (07/08/2024 2:53 [...] - BLOOD ORDERABLES Final R esult LABORATORY [facility] Acute Care Lab [address] [facility] Lab (1st floor, no room number) [place] [address], [facility] * (ABNORMAL) UA with Microscopic reflex to [...] mg/dL 07/08/2024 1:46 AM CDT LABORATORY Specific [place] Urine 1.006 1.003 - 1.035 07/08/2024 1:46 [...] LAB - URINE ORDERABLES Final R esult LABORATORY [facility] Acute Care Lab [address] Lab (1st floor, no room number) [place] [address], [facility] * ABSTRACT HIV (02/16/2022 4:05 PM CDT) Pathologist [facility] HIV 1&2 EXT Non-Reacti ve [facility] Blood 02/16/2022 4:05 PM CDT [facility] 02/16/2022 4:05 PM CDT [facility] LAB RESULT us Provider Outside LAB - HIM EXTERNAL RESULT Final Result [facility] [address] [place], [place] [id number] [place] [address] * PAP Smear - HIM Patient Reported (08/02/2021) PAP Smear - HIM Patient Reported Negative EXTERNAL LAB 08/02/2021 Narrative EXTERNAL LAB - 08/02/2021 Shiela Wren, CHRIS ??Abstract Quality Initiatives3 days ago Please abstract the following data from this visit with this patient into the appropriate field in Epic: Tests that can be patient reported without a hard copy: Pap smear done by this group SPLASH LINE OPERATOR [facility] [place] on this date: 08/02/2021 and HPV done by this group SPLASH LINE OPERATOR clinic on this date: 08/02/2021---report sent to abstraction us Patient Reported LABORATORY Final Result EXTERNAL LAB External Lab from Last 3 Months or Most Recently Relevant to Health Maintenance Insurance [facility] INTEGRATED SERVICES [facility] Care Teams Space Sciences Director Relationship Specialty Start Date End Date No Ref-Primary, Physician PCP - General 07/08/24 Juana Jimenes PA-C [address] [place] [address] Assigned PCP 01/15/24
--- OUTSIDE RECORDS SUMMARY | 2024-07-17 11:14 | XMS_ITS | Encounter Summary ---
Author Organization [facility] Address [address] [place] [address] Care Team Providers Care Die Out Worker Name Role Phone Sindhu Granda NP Primary Care Provider Sindhu Mason NP Unavailable Unavailable Juana Jimenes PA-C Unavailable No Ref-Primary, Physician Primary Care Provider Reason for Visit * Reason Onset Date Comments MyChart Communication 06/07/2023 Encounter Details Date Type Department Care Team (Latest Contact Info) Description 06/07/2023 MyC Medical Advice [address] [phone] Sindhu Granda NP MyChart Communication [...] week 06/06/2023 How often do you attend quaker or mormonism serv ices? Never 06/06/2023 Do you belong to any clubs o r organizations such as quaker groups, unions, fraternal or athletic groups, or [...] Answer Date Recorded PHQ-2 Score 1 06/06/2023 [facility] of Occupat ional Health - Occupational [...] place to sleep or slept in a correction (including now)? No 06/06/2023 Comments No Sex and Gender Information Value [...] on filedocumented in this encounter Care Teams Die Out Worker Relationship Specialty Start Date End Date Sindhu Granda NP PCP - General Family Medicine 06/06/23 01/10/24 No Ref-Primary, Physician PCP - General 07/08/24 Sindhu Granda NP Assigned PCP 05/16/23 01/14/24 Juana Jimenes PA-C [id number] [place] [address] Assigned PCP 01/15/24 documented as of this encounter
--- OUTSIDE RECORDS SUMMARY | 2024-07-17 11:14 | XMS_ITS | Encounter Summary ---
Author Organization [place] Address [address] [place] [address] Care Team Providers Care Coal Sample Tester Name Role Phone Sindhu Granda NP Primary Care Provider Sindhu Mason NP Unavailable Unavailable Juana Jimenes PAAdriaC Unavailable No Ref-Primary, Physician Primary Care Provider Encounter Details Date Type Department Care Team (Late st Contact Info) Description 11/26/2023 MyC Medical Advice [facility] [id number] [place] [phone] Sindhu Granda NP Social History Tobacco [...] week 06/06/2023 How often do you attend samaritan or episcopal serv ices? Never 06/06/2023 Do you belong to any clubs o r organizations such as samaritan groups, unions, fraternal or athletic groups, or [...] Answer Date Recorded PHQ-2 Score 0 07/11/2023 [facility] of Occupat ional [facility] - Occupational Stress Questionnaire Answer Date Recorded [...] in an abandoned building, in an overnight snf, or couch-surfing.) Yes 07/11/2023 Are you worried [...] on filedocumented in this encounter Care Teams Coal Sample Tester Relationship Specialty Start Date End Date Sindhu Granda NP PCP - General Family Medicine 06/06/23 01/10/24 No Ref-Primary, Physician PCP - General 07/08/24 Sindhu Granda NP Assigned PCP 05/16/23 01/14/24 Juana Jimenes PA-C [address] [place] [address] Assigned PCP 01/15/24 documented as of this encounter
--- OUTSIDE RECORDS SUMMARY | 2024-07-17 11:14 | XMS_ITS | Encounter Summary ---
Author Organization [place] Address [address] [place] [address] Care Team Providers Care Truck Hopper Name Role Phone Sindhu Granda NP Primary Care Provider Sindhu Mason NP Unavailable Unavailable Juana Jimenes PAAdriaC Unavailable No Ref-Primary, Physician Primary Care Provider Encounter Details Date Type Department Care Team (Late st Contact Info) Description 12/07/2023 MyC Medical Advice [facility] [id number] [place] [phone] Brenna Piper Social History Tobacco Use [...] week 06/06/2023 How often do you attend faith or congregation serv ices? Never 06/06/2023 Do you belong to any clubs o r organizations such as faith groups, unions, fraternal or athletic groups, or [...] Answer Date Recorded PHQ-2 Score 0 07/11/2023 [facility] - Occupational Stress Questionnaire Answer [...] on filedocumented in this encounter Care Teams Truck Hopper Relationship Specialty Start Date End Date Sindhu Granda NP PCP - General Family Medicine 06/06/23 01/10/24 No Ref-Primary, Physician PCP - General 07/08/24 Sindhu Granda NP Assigned PCP 05/16/23 01/14/24 Juana Jimenes PA-C [address] [place] [address] Assigned PCP 01/15/24 documented as of this encounter
--- OUTSIDE RECORDS SUMMARY | 2024-07-17 11:14 | XMS_ITS | Encounter Summary ---
Author Organization [place] Address [address] [place] [address] Care Team Providers Care Hot Wort Settler Name Role Phone Juana Jimenes PA-C Unavailable No Ref-Primary, Physician Primary Care Provider Reason for Visit * Reason Comments Back Pain Encounter Details Date Type Department Care Team (Late st Contact Info) Description 07/08/2024 2:31 AM CDT - 07/08/2024 5:45 AM CDT Emergency [facility] Emergency Dept [address] [place] [address] Brian Perry MD Acute pyelonephritis Discharge Disposition: [...] week 06/06/2023 How often do you attend congregation or islam serv ices? Never 06/06/2023 Do you belong to any clubs o r organizations such as congregation groups, unions, fraternal or athletic groups, or [...] Answer Date Recorded PHQ-2 Score 0 12/21/2023 [facility] of Occupat ional Health - Occupational [...] be sent through Care Everywhere. * Pyelonephritis (Palauan) documented in this encounter Medications at Time of Discharge dicyclomine (BENTYL) 20 MG tabletIndications :Abdominal pain, generalized Take 1 tablet (20 mg) by mouth 4 times daily as needed (abdominal pain) 40 tablet 08/28/2023 sertraline (ZOLOFT) 25 MG tabletIndications :Anxiety Take 1 tablet (25 mg) by mouth daily 90 tablet 3 07/11/2023 sulfamethoxazole- trimethoprim (BACTRIM DS) 800-160 MG tablet Take 1 tablet by mouth 2 times daily for 10 days. 20 tablet 07/08/2024 tirzepatide (MOUNJARO) 2.5 MG/0.5ML penIndications:Cl ass 2 severe obesity due to excess calories [...] Bilirubin Urine Negative Ketones Urine Negative Specific [place] Urine 1.006 Blood Urine Moderate (*) pH [...] injection 15 mg (15 mg Intravenous $Given 07/08/24 0259) acetaminophen (TYLENOL) tablet 1,000 mg (1,000 mg Oral $Given 07/08/24 0300) sulfamethoxazole-trimethoprim (BACTRIM DS) 800-160 MG per tablet 1 tablet (1 tablet Oral $Given 07/08/24 0585) Procedures Procedures Discussion of Management None ED Course ED Course as of 07/08/24 0611 [facility] Jul 08, 2024 0244 Patient seen and evaluated 0520 Patient updated regarding findings and plan of care. Additional Documentation None Medical Decision Making / Diagnosis [facility] Diagnoses: None MIPS None MDM Rand Joy [...] EXAM: CT ABDOMEN PELVIS W/O CONTRAST LOCATION: [facility] DATE: 07/08/2024 INDICATION: hematuria, flank pain COMPARISON: [...] EXAM: CT ABDOMEN PELVIS W/O CONTRAST LOCATION: [facility] DATE: 07/08/2024 INDICATION: hematuria, flank pain COMPARISON: [...] - BLOOD ORDERABLES Final R esult LABORATORY [facility] Care Lab [address] Lab (1st floor, no room number) [place] [phone] [place] [address] * HCG qualitative Blood (07/08/2024 2:53 AM CDT) Pathologist [facility] hCG Serum Qualitative Negative Negative TIARRA 07/08/2024 3:43 AM CDT LABORATORY Comment:This test is for scr eening purposes. Results should be interpreted along with the clinical picture. Confirmation testing is available if warranted by ordering [id number], HCG Quantitative . Blood VENOUS LINE / Unknown Venipuncture / Unknown 07/08/2024 2:53 AM CDT 07/08/2024 2:58 AM CDT us Brian Perry MD LAB - BLOOD ORDERABLES Final R esult Performing Organization Address City/[facility]/ZIP Co de Phone Number [facility] Care Lab [address] Lab (1st floor, no room number) [place] [phone] [place] [address] * (ABNORMAL) Comprehensive metabolic panel (07/08/2024 2:53 AM CDT) Pathologist [facility] Sodium 139 135 - 145 mmol/L 07/08/2024 [...] AM CDT RH LABORATORY Comment:eGFR calculated usin 2020 CKD-EPI equation. [...] - BLOOD ORDERABLES Final R esult LABORATORY [facility] Acute Care Lab [address] Lab (1st floor, no room number) [place] [address], [facility] * (ABNORMAL) UA with Microscopic reflex to Culture (07/08/2024 1:35 AM CDT) Color Urine Straw Colorless, Straw, Light Yellow, Yellow 07/08/2024 1:46 AM CDT LABORATORY Appearance Urine Clear Clear 07/08/20 24 1:46 AM CDT RH LABORATORY Glucose Urine Negative Negative mg/dL 07/08/2024 1:46 AM CDT RH LABORATORY Bilirubin Urine Negative Negative 4 1:46 AM CDT RH LABORATORY Ketones Urine Negative Negative mg/dL 07/08/2024 1:46 AM CDT LABORATORY Specific [place] Urine 1.006 1.003 - 1.035 07/08/2024 1:46 [...] LAB - URINE ORDERABLES Final R esult [facility] Acute Care Lab [address] [facility] Lab (1st floor, no room number) [place] [address], [facility] documented in this encounter Visit Diagnoses Diagnosis [...] 0520, For 1 dose, Indications: Urinary Tract InfectionIndications:Urinary Tract Infection $Given 07/08/2024 5:38 AM CDT [...] gram 0300 ($Given - Provi kenan: Rand Hernandez, GERALDINE) ketorolac (TORADOL) injection 15 mg (COMPLETED) 15 [...] RN) documented in this encounter Care Teams Hot Wort Settler Relationship Specialty Start Date End Date No Ref-Primary, Physician PCP - General 07/08/24 Juana Jimenes PA-C [id number] [place] [address] Assigned PCP 01/15/24 documented as of this encounter
--- OUTSIDE RECORDS SUMMARY | 2024-07-17 11:14 | XMS_ITS | Clinical Summary ---
Author Organization [facility] Address [address] [place] [address] Care Team Providers Care Oxyacetylene Welder Name Role Phone Unavailable Primary Care Provider Unavailabl e Source Comments You are receiving this document as you are listed as the primary care provider,follow-up provider, or the patient has been referred to you for consultation.This is in compliance with the Medicare andBlanch[facility] Valley Health Systemcaid EHR Incentive Program,which states Providers who transition their patient to another setting of careor provider of care or refers their patient to another provider of care shouldprovide summary care record for each transition of care or referral. [facility] [employer] Allergies No known active allergies Medications Medication [...]
--- OUTSIDE RECORDS SUMMARY | 2024-07-17 11:14 | XMS_ITS | Encounter Summary ---
Author Organization [place] Address [address] [place] [address] Care Team Providers Care Stock Feeder Name Role Phone Sindhu Granda NP Primary Care Provider Sindhu Mason NP Unavailable Unavailable Juana Jimenes PA-C Unavailable No Ref-Primary, Physician Primary Care Provider Reason for Visit * Reason Onset Date Comments MyChart Communication 07/24/2023 Encounter Details Date Type Department Care Team (Latest Contact Info) Description 07/24/2023 MyC Medical Advice [address] [address] Sindhu Granda NP MyChart Communication [...] week 06/06/2023 How often do you attend yarsanism or anglican serv ices? Never 06/06/2023 Do you belong to any clubs o r organizations such as yarsanism groups, unions, fraternal or athletic groups, or [...] Answer Date Recorded PHQ-2 Score 0 07/11/2023 [facility] of Occupat ional Health - Occupational Stress [...] in an abandoned building, in an overnight group home, or couch-surfing.) Yes 07/11/2023 Are you worried [...] Sindhu Peraza NP - 08/03/2023 9:06 AM SOFTWARE DATABASE ARCHITECT I have wrote the letter and please send in Sindhu Peraza NP on 08/03/2023 at 9:06 AM WARE DATABASE ARCHITECT * Telephone Encounter - Juana Jimenes PA-C [...] on filedocumented in this encounter Care Teams Stock Feeder Relationship Specialty Start Date End Date Sindhu Granda NP PCP - General Family Medicine 06/06/23 01/10/24 No Ref-Primary, Physician PCP - General 07/08/24 Sindhu Granda NP Assigned PCP 05/16/23 01/14/24 Juana Jimenes PA-C [id number] [place] [address] Assigned PCP 01/15/24 documented as of this encounter
--- OUTSIDE RECORDS SUMMARY | 2024-07-17 11:14 | XMS_ITS | Encounter Summary ---
Author Organization [facility] Address [address] [place] [address] Care Team Providers Care Outside Sales Account Representative Name Role Phone Sindhu Granda NP Primary Care Provider Sindhu Mason NP Unavailable Unavailable Juana Jimenes PAAdriaC Unavailable No Ref-Primary, Physician Primary Care Provider Encounter Details Date Type Department Care Team (Late st Contact Info) Description 08/17/2023 MyC Medical Advice [address] [phone] Nadja Jeffers, HUMAN RESOURCE ANALYST Social History Tobacco Use Types Packs/Day Years [...] week 06/06/2023 How often do you attend catholic or orthodoxy serv ices? Never 06/06/2023 Do you belong to any clubs o r organizations such as catholic groups, unions, fraternal or athletic groups, [...] Answer Date Recorded PHQ-2 Score 0 07/11/2023 [facility] of Occupat ional [facility] - Occupational Stress Questionnaire Answer [...] in an abandoned building, in an overnight fci, or couch-surfing.) Yes 07/11/2023 Are you worried [...] on filedocumented in this encounter Care Teams Outside Sales Account Representative Relationship Specialty Start Date End Date Sindhu Granda NP PCP - General Family Medicine 06/06/23 01/10/24 No Ref-Primary, Physician PCP - General 07/08/24 Sindhu Granda NP Assigned PCP 05/16/23 01/14/24 Juana Jimenes PA-C [id number] [place] [address] Assigned PCP 01/15/24 documented as of this encounter
== END 2024-07-17 11:10 | disposition home or self-care (01) ==
LOC: LKVREF 11:10
PROVIDERS: Visit Provider Emergency Medicine
DX: R31.29 Other microscopic hematuria (principal); R10.2 Pelvic and perineal pain
CPT/HCPCS: 86140

== ENCOUNTER 2025-02-05 18:17 | Outpatient (CLI) | payer OTHER, SELFPAY | END 2025-02-05 18:18 | disposition home or self-care (01) | LOC: NFLDREF 02-11 03:16 | PROVIDERS: Visit Provider Family Medicine | DX: R30.0 Dysuria (principal); R39.9 Unspecified symptoms and signs involving the genitourinary system | CPT/HCPCS: 87086 ==

== ENCOUNTER 2025-06-21 07:00 | Outpatient (CLI) | payer OTHER, SELFPAY | END 2025-06-21 07:01 | disposition home or self-care (01) | LOC: NFLDREF 06-25 11:04 | PROVIDERS: Visit Provider Physician Assistant | DX: R19.7 Diarrhea, unspecified (principal) | CPT/HCPCS: 87177; 87209; 87507 ==